=== PATIENT | male | born 1955 | race American Indian/Alaskan Native ===

== ENCOUNTER 2019-08-27 15:38 | Inpatient (IN) ==
[2019-08-27] MEDS ORDERED: 0.9 % SODIUM CHLORIDE 1,000 ML IV ONE ×2 (17:00→17:01)
[2019-08-27] MEDS ORDERED: INSULIN REGULAR, HUMAN 1 UNIT/0.01 ML UNIT IV ONE (17:00)
[2019-08-27 17:02] LABS: Appearance,Urine CLEAR; Bacteria,Urine 0 /hpf (0); Bilirubin,Urine NEG (NEG); Color,Urine STRAW; Glucose,Urine (UA) >=500 mg/dL (NEG); Ketones,Urine 5/TR mg/dL (NEG); Leukocyte Esterase,Urine NEG /uL (NEG); Nitrate,Urine NEG (NEG); Protein,Urine NEG (NEG); Specific Gravity,Urine 1.028 (1.000-1.035); Urine Blood NEG mg/dL (<0.03); Urine RBC 0 /hpf (0-1); Urine Squamous Epithelial Cell 0 /hpf (0-4); Urine WBC < 1 /hpf (0-4); Urobilinogen,Urine NEG (NEG)
--- NOTE | 2019-08-27 17:20 | XRay Report ---
CLINICAL INFORMATION: Infected right fifth toe TECHNIQUE: AP and lateral right foot COMPARISON: Previous examination dated 08/26/2019 FINDINGS: Patient apparently has an infection of his left fifth digit. There is a focal area of bone destruction involving the left fifth middle phalanx. Appearance is consistent with osteomyelitis. Gout could have a similar appearance. There is no soft tissue gas or radiopaque foreign body. There is been no significant interval change. There is no pathologic fracture There is mild degenerative joint disease. No other focal abnormalities. No other areas of bony erosion or destruction. Metatarsal phalangeal angle measures 25 degrees consistent with mild metatarsus primus varus and hallux valgus deformity. IMPRESSION: 1. No significant interval change since 08/26/2019 2. Soft tissue swelling in the right fifth digit. No soft tissue gas or radiopaque foreign body 3. Focal bone destruction in the lateral aspects of the right fifth middle phalanx. Findings are consistent with osteomyelitis Interpreted and Authenticated by: Ki Stallings 08/27/19
--- NOTE | 2019-08-27 17:24 | Emergency Department Note ---
General Adult HPI - General Chief complaint: Extremity Injury, Lower Stated complaint: look at little toe on rt foot. Time Seen by Provider: 08/27/19 16:46 Mode of arrival: ambulatory Limitations: no limitations - History of Present Illness HPI Narrative: 64-year-old male patient was referred to the emergency room from his primary care provider ([facility]) for developing cellulitis/wound to his right little toe. Patient is a very poorly controlled type II diabetic. He was seen in our emergency department yesterday and evaluated by both Dr. Parr. And Dr. Morel. During his time yesterday he had elevated blood sugar greater than 700. VBG showed pH 7.33 with bicarbonate 20 and elevated anion gap at 25. Patient was treated with 5 units of insulin 2 over his stay. He was successfully hydrated with 3 L of saline at total 40 units regular insulin d uring this time. He was successfully discharged in stable condition. During his initial intake today his fingerstick blood sugar was noted to read "high". When questioned patient tells me he took his insulin as directed but unfortunately "ate all the sugar in my house". He does admit to using me thamphetamine earlier this morning. He has no considerable complaints. He denies systemic fever, sweats, chills. He denies sinus congestion or cough. He denies shortness of breath. He denies retrosternal chest pain or palpitations. He denies abdominal pain, nausea, vomiting, or diarrhea. He admits to mild dysuria with urination today. He denies hematuria. No penile discharge. He admits to lower extremity neuropathy over the last year. He denies focal weakness. Review his active problems shows the following: Type 2 diabetes with hyperglycemia, diabetic ketoacidosis, atrial fibrillation, CHF, hypertension, chronic kidney disease stage III, nonischemic cardiomyopathy, hematuria, high cholesterol, BPH, chronic obstructive airway disease, CVA, history of kidney stones, heart disease, fatigue, tobacco use. - Related Data Home Medications Medication Instructions Recorded Confirmed albuterol sulfate 90 mcg/actuation 2 puff INHALATION QDAY PRN g 06/12/17 05/06/19 aerosol inhaler lisinopril 20 mg tablet 20 mg PO QDAY 06/12/17 05/06/19 warfarin 4 mg tablet 4 mg PO .COMPLEX 06/12/17 05/06/19 warfarin 5 mg tablet 5 mg PO .COMPLEX 06/12/17 05/06/19 furosemide 20 mg tablet 20 mg PO QDAY 06/16/17 05/06/19 aspirin 81 mg tablet,delayed 81 mg PO QDAY 11/03/18 05/06/19 release atorvastatin 80 mg tablet 80 mg PO QHS 11/03/18 05/06/19 chlorthalidone 25 mg tablet 12.5 mg PO QDAY tab 11/19/18 05/06/19 bisoprolol fumarate 10 mg tablet 5 mg PO QDAY tab 05/06/19 05/06/19 Previous Rx's Medication Instructions Recorded ergocalciferol (vitamin D2) 50,000 50,000 unit PO QWEEK #10 cap 12/17/18 unit capsule Allergies Allergy/AdvReac Type Severity Reaction Status Date / Time No Known Drug Allergies Allergy Verified 08/26/19 15:14 Review of Systems All systems ED: reviewed and negative except as stated. Past Medical History - Social History smoking status: Current every day smoker Physical Exam Limitations: no limitations General appearance: alert, in no apparent distress, other (smell of acetone on his breath.) Head: atraumatic, normocephalic Eye: Present: normal appearance, PERRL, EOMI. Absent: scleral icterus, conjunctival injection ENT: Present: normal oropharynx, mucous membranes moist Neck: Present: trachea midline. Absent: lymphadenopathy, thyromegaly Chest: Present: symmetric chest wall rise Respiratory: Present: normal lung sounds bilaterally. Absent: respiratory distress, wheezes, stridor, accessory muscle use, prolonged expiratory phase Cardiovascular: Present: regular rate, normal rhythm. Absent: systolic murmur, diastolic murmur Abdominal: Present: soft. Absent: distention, tenderness, guarding, rebound, rigidity, organomegaly, mass Extremities: Present: pedal edema, other (a right great toe erythematous and slightly swollen. There is small skin break to the lateral aspect. No obvious drainage. Area is nontender to palpation. Patient has considerably decreased sensation throughout both feet secondary to neuropathy.) Neurological: Present: alert, oriented X3 Psychiatric: Present: normal affect, normal mood Skin: Present: warm, dry, other (skin changes to right little toes mentioned.) Course Course Narrative: Patient brought into the emergency department and a history and physical examination performed. Saline lock was established and laboratory studies are drawn. Fingerstick blood sugar noted to read "high". Normal saline was started at 1000 mL bolus with the expectation of getting at least 2 L total infused. Review his laboratory studies show the following: CBC low WBC 4.0, all others are normal limits. CMP sodium 125 (corrected to 135), chloride 90, come back to 18, anion gap 17, BUN 24, creatinine 1.3, glucose 751, AST 41, ALT 47, alkaline phosphatase 177, all others are normal limits. VBG pH 7.42, pCO2 27.1, pO2 of 42, HCO3 17.1. Beta hydroxybutyrate 1.05. Urinalysis showed a straw-colored urine with specific gravity 1.028 and pH 6.0. Significant ++ glucose and trace ketones. Negative bacteria. Negative blood. X-ray of the right foot showed following soft tissue swelling of the right fifth digit. Radiologist mentioned no soft tissue gas or radiopaque foreign body. He did note focal bone destruction to the lateral aspects of the right fifth middle phalanx. He mentions these findings are consistent with osteomyelitis. Patient was given vancomycin 5000 mg and Zosyn 3.337 g IV. After reviewing all the labs, patient was given 10 units of regular insulin IVP. Repeat blood sugar was obtained approximately an hour later and it decreased considerably down to 250. Patient became hungry and was given some turkey from several sandwiches to eat. With h is developing osteomyelitis and uncontrolled type 2 diabetes and reached out the hospitalist (Dr. Haynes) about the need for admission. At this time Dr. Haynes recommended to be admitted for ongoing IV antibiotics for the cellulitis of his foot. During that time will also help manage his diabetes. The patient remained stable to his entire time in the emergency department and is being admitted under the care Dr. Haynes. All further treatment decisions will be carried out by Dr. Haynes. Vital Signs Temperature 96.8 F L 08/27/19 15:39 Pulse Rate 91 H 08/27/19 15:39 Respiratory Rate 16 08/27/19 15:39 Blood Pressure 128/76 08/27/19 15:39 Pulse Oximetry (%) 96 08/27/19 15:39 Temperature 96.8 F L 08/27/19 15:39 Pulse Rate 80 08/27/19 20:16 Respiratory Rate 16 08/27/19 15:39 Blood Pressure 104/73 08/27/19 20:16 Pulse Oximetry (%) 95 08/27/19 20:16 Medical Decision Making - Lab Data Lab results reviewed: Yes I reviewed the patient's lab results. Result diagrams: 08/27/19 17:00 08/27/19 17:15 Lab Results 08/27/19 08/27/19 08/27/19 Range/Units 16:20 17:00 17:15 WBC 4.0 L (4.5-11.0) K/mcL RBC 4.91 (4.50-5.90) M/mcL Hgb 14.4 (13.5-16.5) g/dL Hct 43.1 (41.0-55.0) % POC Hct 44.0 (41.0-55.0) % MCV 87.7 (80.0-100.0) fL MCH 29.3 (26.0-34.0) pg MCHC 33.4 (31.0-36.0) g/dL RDW 14.4 (11.5-14.5) % Plt Count 211 (140-440) K/mcL MPV 8.4 (7.4-10.4) fL Gran % 63.7 (38.0-78.0) % Lymph % (Auto) 17.7 (15.5-49.0) % Lyon % (Auto) 17.2 H (1.0-12.0) % Eos % (Auto) 1.1 (0.0-7.0) % Baso % (Auto) 0.3 (0.0-2.0) % Gran # 2.6 (1.8-8.0) K/mcL Lymph # (Auto) 0.7 L (1.5-4.8) K/mcL Lyon # (Auto) 0.7 (0.1-0.9) K/mcL Eos # (Auto) 0 (0.0-0.7) K/mcL Baso # (Auto) 0 (0.0-0.3) K/mcL ABG Methemoglobin (0.4-1.5) % VBG pH (7.32-7.42) U VBG pCO2 (41.0-51.0) mmHg VBG pO2 (25-40) mmHg VBG HCO3 (24.0-28.0) mmol/L VBG Total CO2 (25.0-29.0) mmol/L VBG O2 Saturation (40.0-70.0) % VBG Base Excess (-2.0-2.0) Carboxyhemoglobin (0.0-1.5) % THgb Total Hemoglobin (13.5-16.5) gm/dL O2 Delivery Level POC Sodium 126 L (133-145) mmol/L Sodium 125 L (133-145) mmol/L POC Potassium 3.8 (3.3-5.1) mmol/L Potassium 3.9 (3.3-5.1) mmol/L POC Chloride 95 L (96-108) mmol/L Chloride 90 L (96-108) mmol/L Carbon Dioxide 18 L (22-30) mmol/L POC Total CO2 21 L (22-30) mmol/L Anion Gap 17.0 H (8-16) POC BUN 29 H (8-23) mg/dl BUN 24 H (8-23) mg/dl Creatinine 1.3 H (0.7-1.2) mg/dl POC Creatinine 1.1 (0.7-1.2) mg/dl GFR Calculation 57 Glucose 751 H* (70-105) mg/dL POC Glucose > 700 H* (70-105) mg/dL Calcium 9.1 (8.6-10.4) mg/dl POC WB Ioniz Calcium 1.16 (1.16-1.32) mmol/L Total Bilirubin 0.3 (0.0-1.0) mg/dL AST 41 H (0-37) U/l ALT 47 H (0-40) U/l Alkaline Phosphatase 177 H (39-117) U/L Total Protein 6.2 (5.9-8.4) gm/dL Albumin 3.3 (3.2-5.2) gm/dL Globulin 2.9 (2.2-3.7) gm/dL Albumin/Globulin Ratio 1.1 (1.0-2.3) Beta-Hydroxybutyrate 1.05 H (< 0.27) mmol/L Urine Color Straw Urine Appearance Clear Urine pH 6.0 (5.0-9.0) Ur Specific Haines 1.028 (1.000-1.035) Urine Protein Neg (NEG) mg/dL Urine Glucose (UA) >=500 A (NEG) mg/dL Urine Ketones 5/tr A (NEG) mg/dL Urine Occult Blood Neg (<0.03) mg/dL Urine Nitrate Neg (NEG) Urine Bilirubin Neg (NEG) mg/dL Urine Urobilinogen Neg (NEG) mg/dL Ur Leukocyte Esterase Neg (NEG) /uL Urine RBC 0 (0-1) /hpf Urine WBC < 1 (0-4) /hpf Ur Squamous Epith Cells 0 (0-4) /hpf Urine Bacteria 0 (0) /hpf 08/27/19 Range/Units 17:44 WBC (4.5-11.0) K/mcL RBC (4.50-5.90) M/mcL Hgb (13.5-16.5) g/dL Hct (41.0-55.0) % POC Hct (41.0-55.0) % MCV (80.0-100.0) fL MCH (26.0-34.0) pg MCHC (31.0-36.0) g/dL RDW (11.5-14.5) % Plt Count (140-440) K/mcL MPV (7.4-10.4) fL Gran % (38.0-78.0) % Lymph % (Auto) (15.5-49.0) % Lyon % (Auto) (1.0-12.0) % Eos % (Auto) (0.0-7.0) % Baso % (Auto) (0.0-2.0) % Gran # (1.8-8.0) K/mcL Lymph # (Auto) (1.5-4.8) K/mcL Lyon # (Auto) (0.1-0.9) K/mcL Eos # (Auto) (0.0-0.7) K/mcL Baso # (Auto) (0.0-0.3) K/mcL ABG Methemoglobin 0.3 L (0.4-1.5) % VBG pH 7.42 (7.32-7.42) U VBG pCO2 27.1 L (41.0-51.0) mmHg VBG pO2 142 H (25-40) mmHg VBG HCO3 17.1 L (24.0-28.0) mmol/L VBG Total CO2 17.9 L (25.0-29.0) mmol/L VBG O2 Saturation 93.8 H (40.0-70.0) % VBG Base Excess -6.0 L (-2.0-2.0) Carboxyhemoglobin 4.8 H (0.0-1.5) % THgb Total Hemoglobin 12.2 L (13.5-16.5) gm/dL O2 Delivery Level Not Reportable POC Sodium (133-145) mmol/L Sodium (133-145) mmol/L POC Potassium (3.3-5.1) mmol/L Potassium (3.3-5.1) mmol/L POC Chloride (96-108) mmol/L Chloride (96-108) mmol/L Carbon Dioxide (22-30) mmol/L POC Total CO2 (22-30) mmol/L Anion Gap (8-16) POC BUN (8-23) mg/dl BUN (8-23) mg/dl Creatinine (0.7-1.2) mg/dl POC Creatinine (0.7-1.2) mg/dl GFR Calculation Glucose (70-105) mg/dL POC Glucose (70-105) mg/dL Calcium (8.6-10.4) mg/dl POC WB Ioniz Calcium (1.16-1.32) mmol/L Total Bilirubin (0.0-1.0) mg/dL AST (0-37) U/l ALT (0-40) U/l Alkaline Phosphatase (39-117) U/L Total Protein (5.9-8.4) gm/dL Albumin (3.2-5.2) gm/dL Globulin (2.2-3.7) gm/dL Albumin/Globulin Ratio (1.0-2.3) Beta-Hydroxybutyrate (< 0.27) mmol/L Urine Color Urine Appearance Urine pH (5.0-9.0) Ur Specific Haines (1.000-1.035) Urine Protein (NEG) mg/dL Urine Glucose (UA) (NEG) mg/dL Urine Ketones (NEG) mg/dL Urine Occult Blood (<0.03) mg/dL Urine Nitrate (NEG) Urine Bilirubin (NEG) mg/dL Urine Urobilinogen (NEG) mg/dL Ur Leukocyte Esterase (NEG) /uL Urine RBC (0-1) /hpf Urine WBC (0-4) /hpf Ur Squamous Epith Cells (0-4) /hpf Urine Bacteria (0) /hpf - Radiology Data Radiology results reviewed: Yes I reviewed the patient's radiology results. Ordering Physician: Gilmar Dc PA-C Date of Service: 08/27/19 Procedure(s): XR foot ltd RT 2V Accession Number(s): [id number] CLINICAL INFORMATION: Infected right fifth toe TECHNIQUE: AP and lateral right foot COMPARISON: Previous examination dated 08/26/2019 FINDINGS: Patient apparently has an infection of his left fifth digit. There is a focal area of bone destruction involving the left fifth middle phalanx. Appearance is consistent with osteomyelitis. Gout could have a similar appearance. There is no soft tissue gas or radiopaque foreign body. There is been no significant interval change. There is no pathologic fracture There is mild degenerative joint disease. No other focal abnormalities. No other areas of bony erosion or destruction. Metatarsal phalangeal angle measures 25 degrees consistent with mild metatarsus primus varus and hallux valgus deformity. IMPRESSION: 1. No significant interval change since 08/26/2019 2. Soft tissue swelling in the right fifth digit. No soft tissue gas or radiopaque foreign body 3. Focal bone destruction in the lateral aspects of the right fifth middle phalanx. Findings are consistent with osteomyelitis Interpreted and Authenticated by: Ki Stallings 08/27/19 Disposition Pt seen by MANAGER CHINESE/PA only: Yes Clinical Impression: Ketosis due to diabetes Hyperglycemia due to type 2 diabetes mellitus Qualifiers: Diabetes mellitus moth exterminator insulin use: with moth exterminator use Qualified Code(s): E11.65 - Type 2 diabetes mellitus with hyperglycemia; Z79.4 - intermodal truck driver (current) use of insulin Osteomyelitis Qualifiers: Osteomyelitis type: other Osteomyelitis location: foot Laterality: right Qualified Code(s): M86.8X7 - Other osteomyelitis, ankle and foot Disposition: Home, Self-Care Condition: Good Instructions: Osteomyelitis (ED) Additional Instructions: Patient is being admitted to the hospital to the care of the hospitalist (Dr. Haynes). All further treatment decisions and modalities be carried out by the hospitalist. Referrals: Chilango Mcmillan MD [Primary Care Provider] - Time of Disposition: 20:46
[2019-08-27 17:27] LABS: POC Blood Urea Nitrogen 29 mg/dl (8-23); POC CO2 21 mmol/L (22-30); POC Calcium, Ionized 1.16 mmol/L (1.16-1.32); POC Chloride 95 mmol/L (96-108); POC Creatinine 1.1 mg/dl (0.7-1.2); POC Glucose, Random > 700 mg/dL (70-105); POC Potassium 3.8 mmol/L (3.3-5.1); POC Sodium 126 mmol/L (133-145)
[2019-08-27 18:04] LABS: ABG Methemoglobin 0.3 % (0.4-1.5); Total Hemoglobin 12.2 gm/dL (13.5-16.5); VBG HCO3 17.1 mmol/L (24.0-28.0); VBG Oxygen Saturation 93.8 % (40.0-70.0); VBG PCO2 27.1 mmHg (41.0-51.0); VBG PH 7.42 U (7.32-7.42); VBG PO2 142 mmHg (25-40); VBG Total CO2 17.9 mmol/L (25.0-29.0)
[2019-08-27 18:14] LABS: Basophils # (Auto) 0 K/mcL (0.0-0.3); Basophils % (Auto) 0.3 % (0.0-2.0); Eosinophils # (Auto) 0 K/mcL (0.0-0.7); Eosinophils % (Auto) 1.1 % (0.0-7.0); Granulocytes % (Auto) 63.7 % (38.0-78.0); Hematocrit 43.1 % (41.0-55.0); Hemoglobin 14.4 g/dL (13.5-16.5); Lymphocytes # (Auto) 0.7 K/mcL (1.5-4.8); Lymphocytes % (Auto) 17.7 % (15.5-49.0); Mean Cell Volume 87.7 fL (80.0-100.0); Mean Corpuscular HGB Conc 33.4 g/dL (31.0-36.0); Mean Platelet Volume 8.4 fL (7.4-10.4); Monocytes # (Auto) 0.7 K/mcL (0.1-0.9); Monocytes % (Auto) 17.2 % (1.0-12.0); Platelet Count 211 K/mcL (140-440); RBC 4.91 M/mcL (4.50-5.90); Red Cell Distribution Width 14.4 % (11.5-14.5)
[2019-08-27 18:49] LABS: ALT/SGPT 47 U/l (0-40); AST/SGOT 41 U/l (0-37); Albumin 3.3 gm/dL (3.2-5.2); Albumin/Globulin Ratio 1.1 (1.0-2.3); Alkaline Phosphatase 177 U/L (39-117); Beta Hydroxybutyrate 1.05 mmol/L (< 0.27); Bilirubin,Total 0.3 mg/dL (0.0-1.0); Blood Urea Nitrogen 24 mg/dl (8-23); Calcium 9.1 mg/dl (8.6-10.4); Carbon Dioxide 18 mmol/L (22-30); Chloride 90 mmol/L (96-108); Globulin 2.9 gm/dL (2.2-3.7); Glomerular Filtration Rate 57; Glucose 751 mg/dL (70-105)
[2019-08-27] MEDS ORDERED: PIPERACILLIN SODIUM/TAZOBACTAM 3.375 GM in DEXTROSE 5% IN WATER 50 ML IV ONE (18:54)
[2019-08-27] MEDS ORDERED: VANCOMYCIN 1,500 MG in 0.9 % SODIUM CHLORIDE 500 ML IV ONE (18:54)
[2019-08-27] MEDS ORDERED: cefTRIAXone 1 GM in DEXTROSE 5% IN WATER 50 ML IV SCH (22:11)
[2019-08-27] MEDS ORDERED: ACETAMINOPHEN 325 MG TABLET PO PRN (22:11)
[2019-08-27] MEDS ORDERED: DEXTROSE 50% 50 ML VIAL IV PRN (22:11)
[2019-08-27] MEDS ORDERED: ONDANSETRON 4 MG ODT TABLET SL PRN (22:11)
[2019-08-27] MEDS ORDERED: DEXTROSE 31 GM ORAL.SUSP PO PRN (22:11)
[2019-08-27] MEDS ORDERED: ONDANSETRON 4 MG/2 ML VIAL IV PRN (22:11)
[2019-08-27] MEDS ORDERED: cefTRIAXone 1 GM VIAL ONE (22:38)
[2019-08-27] MEDS: 0.9 % SODIUM CHLORIDE 1,000 ML IV SCH (22:49)
[2019-08-27] MEDS: 0.9 % SODIUM CHLORIDE 10 ML SYRINGE IV SCH (22:49)
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
[2019-08-28] MEDS: 0.9 % SODIUM CHLORIDE 10 ML SYRINGE IV SCH ×3 (05:38→20:23)
[2019-08-28 06:27] LABS: Basophils # (Auto) 0 K/mcL (0.0-0.3); Basophils % (Auto) 0.5 % (0.0-2.0); Eosinophils # (Auto) 0.2 K/mcL (0.0-0.7); Granulocytes % (Auto) 59.7 % (38.0-78.0); Hematocrit 41.1 % (41.0-55.0); Hemoglobin 13.4 g/dL (13.5-16.5); Lymphocytes # (Auto) 1.2 K/mcL (1.5-4.8); Lymphocytes % (Auto) 21.9 % (15.5-49.0); Mean Cell Volume 88.4 fL (80.0-100.0); Mean Corpuscular HGB Conc 32.8 g/dL (31.0-36.0); Mean Platelet Volume 8.1 fL (7.4-10.4); Monocytes # (Auto) 0.8 K/mcL (0.1-0.9); Monocytes % (Auto) 14.9 % (1.0-12.0); Platelet Count 210 K/mcL (140-440); RBC 4.64 M/mcL (4.50-5.90); Red Cell Distribution Width 14.9 % (11.5-14.5); WBC 5.3 K/mcL (4.5-11.0)
[2019-08-28 07:13] LABS: Estimated Average Glucose(eAG) 542 mg/dL; Hemoglobin A1C 20.5 % HGB (4.0-6.0)
[2019-08-28] MEDS: INSULIN LISPRO 1 UNIT/0.01 ML UNIT SQ SCH ×4 (07:17→20:22)
[2019-08-28 07:19] LABS: ALT/SGPT 37 U/l (0-40); AST/SGOT 34 U/l (0-37); Albumin 2.9 gm/dL (3.2-5.2); Albumin/Globulin Ratio 1.2 (1.0-2.3); Alkaline Phosphatase 113 U/L (39-117); Bilirubin,Total 0.3 mg/dL (0.0-1.0); Blood Urea Nitrogen 16 mg/dl (8-23); C-Reactive Protein 3.3 mg/dl (0.0-0.8); Calcium 8.4 mg/dl (8.6-10.4); Carbon Dioxide 22 mmol/L (22-30); Chloride 100 mmol/L (96-108); Globulin 2.5 gm/dL (2.2-3.7); Glomerular Filtration Rate 89; Glucose 293 mg/dL (70-105)
[2019-08-28 07:32] LABS: Erythrocyte Sedimentation Rate 12 mm/hr (0-15)
[2019-08-28] MEDS: CHLORTHALIDONE 25 MG TABLET PO SCH (10:07)
[2019-08-28] MEDS: INSULIN GLARGINE, HUMAN 1 UNIT/0.01 ML SQ SCH ×2 (10:09→20:22)
--- NOTE | 2019-08-28 10:10 | Magnetic Resonance Report ---
CLINICAL INFORMATION: Diabetes. Soft tissue wound in the right fifth digit TECHNIQUE: Sagittal, coronal, axial images of the right forefoot COMPARISON: Plain film examinations dated 08/26/2019 and 08/27/2019 FINDINGS: Plain film study demonstrates a focal destructive lesion involving the right fifth middle phalanx. There is soft tissue edema within the right fifth digit. There appears to be a wound at the tip of the digit. Clinical correlation necessary. There is bone marrow edema within the right fifth middle phalanx. There is consistent with osteomyelitis. The proximal and distal phalanges appear negative. No well-defined focal fluid collection. No other osseous abnormality. Metatarsals are negative. There is no bone marrow edema. No fracture or stress reaction. No evidence for osteomyelitis. The first through fourth digits are negative IMPRESSION: 1. Soft tissue swelling and edema in the right fifth digit 2. Bone marrow edema in the right fifth middle phalanx consistent with osteomyelitis Interpreted and Authenticated by: Ki Stallings 08/28/19
[2019-08-28] MEDS: 0.9 % SODIUM CHLORIDE 1,000 ML IV SCH ×2 (11:47→20:21)
[2019-08-28] MEDS ORDERED: WARFARIN 5 MG TABLET PO ONE (14:00)
--- NOTE | 2019-08-28 14:45 | Internal Med Progress Note ---
Medical - PN: Subj Patient information: Note initiated : 08/28/19 at 2:43 pm Service Date, if different from initiated Date: [] Patient: Reynaldo Campos a 64 y/o M admitted on 08/27/19 for Look At Little Toe On RtT Foot.. Chief Complaint: Follow-up cellulitis and osteomyelitis Interval history: 08/27 Mr. Campos is a 64 year old M with a history of atrial fibrillation, type 2 diabetes, hypertension, CKD stage III who was referred back to the ED from [facility] due to abnormal foot x-rays. Patient was seen in the ED on 08/26 (yesterday) for hyperglycemia again being referred from clinic. He had a glucose in the 700 range, and anion gap. He is treated with insulin and fluids in the ED with correction of his hyperglycemia and discharged home early this morning. Prior to being referred to the ED on 08/26, he had also complained of redness and draining of his right fifth toe. Radiographs have been taken at that time. He was called by the clinic today, sent to the ED for further evaluations after evidence of osteomyelitis on his radiographs. Patient states that his right little toe became swollen in the middle the summer, and intermittently had purulent drainage. He would occasionally cover it, or elevate it. He would have repeated episodes of edema/erythema and drainage. He had not seen a physician about that until he was seen in the clinic yesterday. As noted x-rays were taken which did show evidence of osteomyelitis. After the clinic called him and asked him to come to the emergency department at [facility], patient drank a power drink, several 7 ups and ribs with sweet barbecue sauce. He had a subsequent power drink ([id number]) and reported to ED. At that point his glucoses were again greater than 700. He was treated with fluids as well as IV insulin with improvement in his glucose. He was referred for admission for further evaluation of cellulitis and osteomyelitis of his right fifth toe. 08/28 No complaints this afternoon. Has been seen by orthopedics. MRI confirms ost eomyelitis limited to the middle phalanx. Patient not interested in amputation would like to try to treat with antibiotics. Gram stain of purulence expressed to ED with gram-positive cocci in chains and clusters. Glucose is under better control with some control of dietary intake. - Constitutional Vitals: Vital Signs Temp Pulse Resp BP Pulse Ox 98.4 F 88 18 111/65 95 08/28/19 12:13 08/28/19 12:13 08/28/19 12:13 08/28/19 12:13 08/28/19 12:13 Period Temp Pulse Resp BP Sys/Bates Pulse Ox Last 24 Hr 96.8 F-98.4 F 73-103 16-20 95-128/54-82 93-96 Intake and Output 08/28/19 08/28/19 08/28/19 05:59 13:59 21:59 Intake Total 240 1000 Output Total 1100 525 600 Balance -860 475 -600 Weight 195 lb 8 oz 195 lb 8 oz Patient Weight 08/29/19 04:59 Weight 195 lb 8 oz Intake & Output: Intake & Output 08/28/19 08/28/19 08/28/19 05:59 13:59 21:59 Intake Total 240 1000 Output Total 1100 525 600 Balance -860 475 -600 Weight 195 lb 8 oz 195 lb 8 oz Intake: IV 1000 Sodium Chloride 0.9% 1,000 ml @ 1000 100 mls/hr IV .Q10H [facility] Rx#: [id number] Oral 240 Output: Void Amount 1100 525 600 Other: Meal Lunch Feeding Ability Independent Urine Appearance Clear Clear Clear Urine Color Pale Bright Yellow Pale Urine Odor Normal Normal Exam: General: In bed no acute distress Chest: Clear Cardiovascular: Regular, no edema Abdomen: Soft, nontender Musculoskeletal: Right fifth digit with no tenderness, decreased edema, erythema generally resolved. No longer draining from the lateral wound. Callus on top of toe. Neuro: Alert, oriented, ambulatory. Decreased sensation in the bilateral lower extremities. Medical - PN: Obj Da - Labs CBC & Chem 7: 08/28/19 04:41 08/28/19 04:41 Labs: Abnormal Lab Results 08/28/19 08/28/19 08/27/19 04:41 04:41 17:44 WBC Hgb 13.4 L RDW 14.9 H [place] % (Auto) 14.9 H Lymph # (Auto) 1.2 L ABG Methemoglobin 0.3 L VBG pCO2 27.1 L VBG pO2 142 H VBG HCO3 17.1 L VBG Total CO2 17.9 L VBG O2 Saturation 93.8 H VBG Base Excess -6.0 L Carboxyhemoglobin 4.8 H Total Hemoglobin 12.2 L POC Sodium Sodium POC Chloride Chloride Carbon Dioxide POC Total CO2 Anion Gap POC BUN BUN Creatinine Glucose 293 H POC Glucose Hemoglobin A1c 20.5 H Calcium 8.4 L AST ALT Alkaline Phosphatase C-Reactive Protein 3.3 H Total Protein 5.4 L Albumin 2.9 L Beta-Hydroxybutyrate Urine Glucose (UA) Urine Ketones 08/27/19 08/27/19 08/27/19 17:15 17:00 16:20 WBC 4.0 L Hgb RDW [place] % (Auto) 17.2 H Lymph # (Auto) 0.7 L ABG Methemoglobin VBG pCO2 VBG pO2 VBG HCO3 VBG Total CO2 VBG O2 Saturation VBG Base Excess Carboxyhemoglobin Total Hemoglobin POC Sodium 126 L Sodium 125 L POC Chloride 95 L Chloride 90 L Carbon Dioxide 18 L POC Total CO2 21 L Anion Gap 17.0 H POC BUN 29 H BUN 24 H Creatinine 1.3 H Glucose 751 H* POC Glucose > 700 H* Hemoglobin A1c Calcium AST 41 H ALT 47 H Alkaline Phosphatase 177 H C-Reactive Protein Total Protein Albumin Beta-Hydroxybutyrate 1.05 H Urine Glucose (UA) >=500 A Urine Ketones 5/tr A Microbiology 08/27/19 21:14 Gram Stain - Final Toe - Fifth Wound Culture - Preliminary Meds: Medications Acetaminophen (Tylenol) 650 mg PO Q6HP PRN; Protocol PRN Reason: Per Pain Protocol/Fever > 101 Atorvastatin Calcium (Lipitor) 80 mg PO HS [facility] Ceftriaxone Sodium (Rocephin) 1 gm IV DAILY [facility] Chlorthalidone (Hygroton) 12.5 mg PO DAILY [facility] Last Admin: 08/28/19 10:07 Dose: 12.5 mg Documented by: Dextrose (Dextrose 50%) 0 ml IV UD PRN PRN Reason: Hypoglycemia Diagnostic Test (Pha) (Accu-Chek) 1 each FS ACHS [facility] Last Admin: 08/28/19 12:06 Dose: 1 each Documented by: Glucose (Insta-Glucose) 15 gm PO PRN PRN PRN Reason: Hypoglycemia Sodium Chloride (Sodium Chloride 0.9%) 1,000 mls @ 100 mls/hr IV .Q10H [facility] Last Admin: 08/28/19 11:47 Dose: 100 mls/hr Documented by: Insulin Glargine (Lantus) 20 unit SQ BID [facility] Last Admin: 08/28/19 10:09 Dose: 20 units Documented by: Insulin Human Lispro (Humalog) 0 unit SQ ACHS [facility]; Protocol Last Admin: 08/28/19 12:09 Dose: 10 units Documented by: Ondansetron HCl (Zofran) 4 mg IV Q6HP PRN PRN Reason: Nausea And Vomiting Ondansetron HCl (Zofran Odt) 4 mg SL Q6HP PRN PRN Reason: Nausea And Vomiting Sodium Chloride (Saline Flush) 10 ml IV Q8 [facility] Last Admin: 08/28/19 05:38 Dose: Not Given Documented by: Warfarin Sodium (Coumadin Per Pharmacy) 1 order PO UD CHRISTIANO - Impressions Date of Service: 08/28/19 Procedure(s): MR foot RT wo con IMPRESSION: 1. Soft tissue swelling and edema in the right fifth digit 2. Bone marrow edema in the right fifth middle phalanx consistent with osteomyelitis - ABG Interpretation ABG results: 08/27/19 17:44 ABG Methemoglobin 0.3 L VBG pH 7.42 VBG pCO2 27.1 L VBG pO2 142 H VBG HCO3 17.1 L VBG Total CO2 17.9 L VBG O2 Saturation 93.8 H VBG Base Excess -6.0 L Medical - PN: A/P - Narrative A/P Narrative: 64-year-old male with type 2 diabetes, hypertension, chronic kidney disease presents after being called by clinic with findings of osteomyelitis on his right fifth toe. Cellulitis and osteomyelitis/diabetic foot wound. Right fifth digit. Cellulitis is improving, lateral area of drainage has stopped. This is a chronic condition, however acute management complicated by very poorly controlled diabetes. Onset was last summer, he finally brought it to his providers attention on 08/26 when establishing care. Radiographs at that point showed osteomyelitis and he was directed towards the ED. He did have evidence of soft tissue infection associated, but also a serum glucose greater than 700 necessitating hospitalization for control of glucose and treatment of infection. He has been seen by orthopedics, is not interested in amputation. No evidence of sequestrum or abscess on MRI. Plan: Continue vancomycin and ceftriaxone Follow-up wound culture. Gram stain with GPC's in chains and clusters Discussed with Dr. Treadwell today We will attempt to treat with antibiotics, await cultures to guide outpatient choice Possible discharge tomorrow on orals Type 2 diabetes. Poorly controlled. Patient had initiation of insulin therapy again on 08/26. He spent several hours in the ED that night getting control of his glucoses. Subsequently binged on sugary substances prior to coming back to the hospital on day of admission. Initial glucose control achieved in the ED with IV insulin. He had a mild anion gap with mildly decreased bicarb of 18 at the time of presentation. This morning, electrolytes are normalized, no longer has an anion gap. Better control of glucose today. Hemoglobin A1c 20.4%. Plan Continue Lantus at a reduced dose of 20 units twice daily, adjust as needed Sliding scale insulin Diabetic diet, Accu-Cheks Follow electrolytes Hyponatremia. Suspect pseudohyponatremia secondary to hyperglycemia. Resolved. Plan: Nothing further. Atrial fibrillation. Chronic diagnosis. However does sound regular this afternoon. Plan: Continue warfarin for stroke prophylaxis, dose per pharmacy, follow INR. Chronic kidney disease. Creatinine is 1.3 which appears at baseline. Plan: Monitor Hypertension. On chlorthalidone and an unknown dose of lisinopril the outside. Plan: Continue chlorthalidone, confirm lisinopril dose. Prophylaxis: Patient is systemically anticoagulated with warfarin.
[2019-08-28] MEDS: cefTRIAXone 1 GM VIAL IV SCH (15:02)
--- NOTE | 2019-08-28 15:26 | Consultation ---
DATE OF CONSULTATION: 08/28/2019 ORTHOPEDIC CONSULTATION NOTE DATE OF CONSULTATION: 08/28/2019 REASON FOR CONSULTATION: Right small toe osteomyelitis. CONSULTING PROVIDER: Dr. Farmer, hospitalist at [facility]. CHIEF COMPLAINT: Right small toe osteomyelitis. HISTORY OF PRESENT ILLNESS: The patient is a 64-year-old male, poorly controlled diabetic, smoker as well as drug user, who presented 2 days ago at [facility] ER, found to have glucose of 700. At that time, he was treated, stabilized and discharged, and also had imaging of his right foot for what he describes as a wound that has been draining on and off since April. At that point, he was sent home with the read being for osteomyelitis. He was called to return yesterday to the ER and again his blood sugars were greater than 700 upon admission and he was admitted by the hospitalist overnight given the osteomyelitis and failure for this to be treated as an outpatient fashion as well as his diabetes. Upon discussion with the patient, he has no pain in the small toe. He thinks that the ulceration occurs from his shoes, but he has no pain in that toe at this time. No other complaints. PAST MEDICAL HISTORY: Significant for type 2 diabetes, AFib, congestive heart failure, hypertension, chronic kidney disease, nonischemic cardiomyopathy, high cholesterol, BPH, COPD, history of CVA, and history of kidney stones. PAST SURGICAL HISTORY: Cardiac catheterization in 2015, ORIF of leg fracture in 1974. He had a TURP in 2017. ALLERGIES: No known drug allergies. MEDICATIONS: Lisinopril, warfarin, atorvastatin, chlorthalidone, vitamin D, and alfuzosin. FAMILY HISTORY: Significant for diabetes, heart disease. SOCIAL HISTORY: He is . Resides with his . He does use marijuana as well as methamphetamines. He does smoke daily. REVIEW OF SYSTEMS: As noted above. He denies any fevers, chills, chest pain or shortness of breath at this point. Otherwise, the 10-point review of systems is negative. PHYSICAL EXAMINATION: VITAL SIGNS: He is afebrile. Temperature 98.1. Heart rate varies from 80 to 103. Blood pressure 111/70. Satting 96% on room air. GENERAL: He is resting comfortably in the hospital bed. NEUROLOGIC: He is alert, oriented, and does interact. He does not enunciate his words very well and difficult to understand at times. EXTREMITIES: Focal examination of the right lower extremity reveals an isolated issue to his right small toe. He has a small ulceration on the lateral mid aspect of the toe. There is no drainage and has eschar over the top of it. He also has a small pinpoint hole over the medial aspect and he has this thick scaled skin over top of the foot, which appears to be from a blister that has subsequently resolved. There is no significant erythema or streaking. There is none up in the foot or past the metatarsophalangeal joint itself. It is not painful with motion. The leg itself has hair that stops at the proximal third of the leg. Otherwise, there is no hair present. He has palpable dorsalis pedis and posterior tibial pulse. He endorses intact sensation to light touch; however, decreased on the plantar surface of his foot. IMAGING: He has plain x-rays of his foot, which demonstrates osteolysis of the P2 segment of his small toe consistent with osteomyelitis. Otherwise, no fractures. He has an MRI of his right foot with some movement in images, but does appear to have a component of osteo in the most distal aspect of the proximal phalanx along the medial border but primarily involves the middle phalanx. LABORATORY DATA: He has a white count of 4, H and H of 14.4 and 43.1, and platelets 211. His INR is 1. His creatinine is 0.9. His glucose this morning was 293, which is down from 751. His hemoglobin A1c is 20.5. ASSESSMENT: This is a 64-year-old male with multiple medical comorbidities to include tobacco use, poorly controlled diabetes, and drug use with osteomyelitis of his right small toe involving very small portion of the proximal phalanx in my opinion but primarily the middle phalanx. I discussed this with him today. I discussed treatment options to include amputation versus IV antibiotics. Discussed both options including IV antibiotics, which will be at least 6 weeks and may not resolve the osteomyelitis and may still need amputation. Otherwise, could proceed with amputation being a definitive approach and may resolve the issue more quickly. He does have a risk of wound complications given his poorly controlled diabetes. He is not septic and only involves the a component of cellulitis of this toe. It is less urgent matter. At this time, he does not want to proceed with an amputation. He would rather try the IV antibiotics. If it does not improve his symptoms then could proceed with amputation at that time. I relayed this to Dr. Farmer, the hospitalist as well. If there are any other findings on the MRI such as a sequestrum that would would benefit from a formal I&D, do not have a plan to operate at this time. He can follow up with podietry on an outpatient basis as well. If there are any changes while inpatient, please reconsult. Thank you JESUS:in Job ID: [id number] Doc ID: [id number] Belgica Treadwell MD MTDD
[2019-08-28] MEDS ORDERED: ATORVASTATIN 40 MG TABLET PO SCH (21:00)
[2019-08-29] MEDS: 0.9 % SODIUM CHLORIDE 10 ML SYRINGE IV SCH (04:23)
[2019-08-29 06:09] LABS: INR 0.9 (0.9-1.1); Prothrombin Time 12.6 sec (11.9-14.5)
[2019-08-29 06:14] LABS: Basophils # (Auto) 0 K/mcL (0.0-0.3); Basophils % (Auto) 0.5 % (0.0-2.0); Eosinophils # (Auto) 0.1 K/mcL (0.0-0.7); Eosinophils % (Auto) 3.1 % (0.0-7.0); Granulocytes % (Auto) 51.1 % (38.0-78.0); Hematocrit 45.2 % (41.0-55.0); Hemoglobin 14.7 g/dL (13.5-16.5); Lymphocytes # (Auto) 1.4 K/mcL (1.5-4.8); Lymphocytes % (Auto) 30.4 % (15.5-49.0); Mean Cell Volume 88.1 fL (80.0-100.0); Mean Corpuscular HGB Conc 32.6 g/dL (31.0-36.0); Monocytes # (Auto) 0.7 K/mcL (0.1-0.9); Monocytes % (Auto) 14.9 % (1.0-12.0); Platelet Count 233 K/mcL (140-440); RBC 5.13 M/mcL (4.50-5.90); Red Cell Distribution Width 14.3 % (11.5-14.5); WBC 4.5 K/mcL (4.5-11.0)
[2019-08-29 06:19] LABS: Blood Urea Nitrogen 13 mg/dl (8-23); Calcium 8.8 mg/dl (8.6-10.4); Carbon Dioxide 22 mmol/L (22-30); Chloride 101 mmol/L (96-108); Glomerular Filtration Rate 89; Glucose 285 mg/dL (70-105)
[2019-08-29] MEDS: INSULIN LISPRO 1 UNIT/0.01 ML UNIT SQ SCH (06:40)
[2019-08-29] MEDS: 0.9 % SODIUM CHLORIDE 1,000 ML IV SCH (06:46)
--- NOTE | 2019-08-29 08:15 | Discharge Summary ---
Medical - DS: Prov Patient information: Note initiated : 08/29/19 at 8:13 am Service Date, if different from initiated Date: [] Patient: Reynaldo Campos 64 y/o M admitted on 08/27/19 for Look At Little Toe On RtT Foot.. Chief Complaint: Called in for abnormal foot x-ray Date of admission: 08/27/19 21:56 Discharge date: 08/29/19 Primary care physician: Chilango Mcmillan Attending physician on admission: Melina Farmer Consults: 08/27/19 Consult to Physician [CONS] Stat Comment: Consulting Provider: Melina Farmer Reason For Exam: Physician to Consult Attending physician on discharge: Melina Farmer Medical - DS: Meds - Discharge Medications Prescriptions: Doxycycline [Vibramycin] 100 mg IV Q12H #28 vial Transmission Status: Pending to [facility] Active and Home Medications: Home Medications lisinopril 20 mg tablet 20 mg PO QDAY 06/12/17 [History Confirmed 05/06/19 Last Taken Unknown] warfarin 5 mg tablet 5 mg PO .COMPLEX 06/12/17 [History Confirmed 08/27/19 Last Taken 06/15/17] atorvastatin 80 mg tablet 80 mg PO QHS 11/03/18 [History Confirmed 08/27/19 Last Taken Unknown] chlorthalidone 25 mg tablet 12.5 mg PO QDAY tab 11/19/18 [History Confirmed 08/27/19 Last Taken Unknown] ergocalciferol (vitamin D2) 50,000 unit capsule 50,000 unit PO QWEEK #10 cap 12/17/18 [Rx Confirmed 08/27/19 Last Taken Unknown] Alfuzosin HCl [Alfuzosin HCl ER] 10 mg PO ONCE 08/27/19 [History Confirmed 08/27/19 Last Taken Unknown] Medical - DS: Hosp Hospital Course: 08/27 Mr. Campos is a 64 year old M with a history of atrial fibrillation, type 2 diabetes, hypertension, CKD stage III who was referred back to the ED from [facility] due to abnormal foot x-rays. Patient was seen in the ED on 08/26 (yesterday) for hyperglycemia again being referred from clinic. He had a glucose in the 700 range, and anion gap. He is treated with insulin and fluids in the ED with correction of his hyperglycemia and discharged home early this morning. Prior to being referred to the ED on 08/26, he had also complained of redness and draining of his right fifth toe. Radiographs have been taken at that time. He was called by the clinic today, sent to the ED for further evaluations after evidence of osteomyelitis on his radiographs. Patient states that his right little toe became swollen in the middle the summer, and intermittently had purulent drainage. He would occasionally cover it, or elevate it. He would have repeated episodes of edema/erythema and drainage. He had not seen a physician about that until he was seen in the clinic yesterday. As noted x-rays were taken which did show evidence of osteomyelitis. After the clinic called him and asked him to come to the emergency department at [facility], patient drank a power drink, several 7 ups and ribs with sweet barbecue sauce. He had a subsequent power drink ([id number]) and reported to ED. At that point his glucoses were again greater than 700. He was treated with fluids as well as IV insulin with improvement in his glucose. He was referred for admission for further evaluation of cellulitis and osteomyelitis of his right fifth toe. 08/28 No complaints this afternoon. Has been seen by orthopedics. MRI confirms osteomyelitis limited to the middle phalanx. Patient not interested in amputation would like to try to treat with antibiotics. Gram stain of purulence expressed to ED with gram-positive cocci in chains and clusters. Glucose is under better control with some control of dietary intake. 08/29 remains stable. Glucoses are controlled in the 200 range on his current insulin regimen with a control of sugar/simple carbohydrate intake. No drainage from toe. No pain in the toe. Otherwise feels well. Surrounding cellulitis appears resolved. MRI shows evidence of osteomyelitis. Was seen by orthopedics, appreciate Dr. Treadwell's consultation. At this point the patient would wish to try antibiotic therapy. He has chronic osteomyelitis. Would be at risk for PICC line placement due to diversion with history of ongoing substance abuse including met hamphetamine and marijuana as well as his history of medical noncompliance. At this point, reasonable alternative will be to begin oral antibiotics the form of doxycycline to cover residual soft tissue infection and start potential treatment of osteomyelitis with referral to infectious disease for further evaluation. Wound culture obtained at time of admission was without growth, though GPC's in clusters and chains were seen on Gram stain. Both Dr. Treadwell and I had extensive discussions with the patient about the risk of loss of toe and further amputations including potential for foot or BKA amputations without following up and addressing his toe wound as well as modifying his diet and attempting to control his diabetes. Patient acknowledged our concerns, but did not appear to take them that seriously. Plan: Discharge to home with doxycycline 100 mg twice daily, initially 2-week course with ultimate plan to refer back to ID for further evaluation and treatment recommendations. His acute soft tissue infection has resolved at the time of discharge. Discharge diagnosis: Chronic osteomyelitis right fifth toe Secondary discharge diagnosis: Uncontrolled type 2 diabetes mellitus, hemoglobin A1c 20.4% Methamphetamine abuse Hypertension Tobacco abuse Time spent discussing smoking cessation with patient: 3 to 10 minutes - Time Spent with Patient Total time spent providing and/or coordinating discharge services: Greater than 30 minutes Medical - DS: Exam - Constitutional Vitals: Vital Signs Temp Pulse Resp BP Pulse Ox 08/29/19 07:46 98 F 20 108/70 95 08/29/19 03:57 98.1 F 76 18 125/83 94 08/29/19 00:00 98 F 74 12 113/65 96 08/28/19 19:37 97.9 F 89 18 110/62 94 08/28/19 15:31 97.9 F 100 H 18 99/65 97 08/28/19 12:13 98.4 F 88 18 111/65 95 Intake and Output 08/28/19 08/29/19 08/29/19 22:59 05:59 13:59 Intake Total 900 Output Total 400 Balance 500 Intake: IV 900 Sodium Chloride 0.9% 1,000 ml @ 900 100 mls/hr IV .Q10H [facility] Rx#: [id number] Oral Output: Void Amount 400 Other: Meal Percent of Meal Consumed Feeding Ability Urine Appearance Clear Urine Color Pale Weight Additional comments: General: No acute distress Chest: Unlabored Cardiovascular: Regular on exam Abdomen: Soft Musculoskeletal: Right fifth digit without erythema. Callus on the top of the toe. No draining from the lateral area. Nontender. Medical - DS: Data Labs on day of discharge: Labs from last 24 hours 08/29/19 08/29/19 08/29/19 04:45 04:45 04:45 WBC 4.5 RBC 5.13 Hgb 14.7 Hct 45.2 MCV 88.1 MCH 28.7 MCHC 32.6 RDW 14.3 Plt Count 233 MPV 8.0 Gran % 51.1 Lymph % (Auto) 30.4 [place] % (Auto) 14.9 H Eos % (Auto) 3.1 Baso % (Auto) 0.5 Gran # 2.3 Lymph # (Auto) 1.4 L [place] # (Auto) 0.7 Eos # (Auto) 0.1 Baso # (Auto) 0 PT 12.6 INR 0.9 Sodium 138 Potassium 3.5 Chloride 101 Carbon Dioxide 22 Anion Gap 15.0 BUN 13 Creatinine 0.9 GFR Calculation 89 Glucose 285 H Calcium 8.8 Preliminary micro results at discharge 08/27/19 17:20 Blood Culture - Preliminary Blood 08/27/19 17:24 Blood Culture - Preliminary Blood 08/27/19 21:14 Wound Culture - Preliminary Toe - Fifth - Impressions Date of Service: 08/28/19 Procedure(s): MR foot RT wo con IMPRESSION: 1. Soft tissue swelling and edema in the right fifth digit 2. Bone marrow edema in the right fifth middle phalanx consistent with osteomyelitis Medical - DS: A/P - Patient/Caregiver Discharge Instructions Activity: increase activity as tolerated Diet: Consistent Carbohydrate - Follow up Plan Follow up with: Chilango Mcmillan MD [Primary Care Provider] - Malik Valles MD [Physician] - (1 week) Disposition: Home, Self-Care Care Plan Goals: Begin oral antibiotics for chronic osteomyelitis. Follow-up with infectious disease for further evaluation and treatment rec ommendations Prognosis: Fair Rehab Potential: Fair I certify that the patient requires SNF services: No Overall status at discharge: patient is back to baseline
[2019-08-29] MEDS: INSULIN GLARGINE, HUMAN 1 UNIT/0.01 ML SQ SCH (08:40)
[2019-08-29] MEDS: cefTRIAXone 1 GM VIAL IV SCH (08:41)
[2019-08-29] MEDS: CHLORTHALIDONE 25 MG TABLET PO SCH (08:41)
[2019-08-29] MEDS ORDERED: FLU VACC QS2019-20(6MOS UP)/PF 60 MCG/0.5 ML SYRINGE IM ONE (10:00)
[2019-08-29] MEDS ORDERED: WARFARIN 5 MG TABLET PO ONE (14:00)
== END 2019-08-29 09:31 | disposition home or self-care (01) | DRG 638 ==
LOC: ED 15:38 → MEDSUR 21:56
PROVIDERS: ADMIT Internal Medicine; ATTEND Internal Medicine

== ENCOUNTER 2020-05-15 17:44 | Inpatient (IN) ==
[2020-05-15] MEDS ORDERED: 0.9 % SODIUM CHLORIDE 1,000 ML IV ONE ×2 (18:15→22:19)
[2020-05-15 18:22] LABS: POC Blood Urea Nitrogen 40 mg/dl (8-23); POC CO2 25 mmol/L (22-30); POC Calcium, Ionized 1.05 mmol/L (1.16-1.32); POC Chloride 84 mmol/L (96-108); POC Creatinine 1.5 mg/dl (0.7-1.2); POC Glucose, Random 540 mg/dL (70-105); POC Potassium 2.5 mmol/L (3.3-5.1); POC Sodium 124 mmol/L (133-145)
[2020-05-15] MEDS ORDERED: INSULIN REGULAR, HUMAN 1 UNIT/0.01 ML UNIT IV ONE (18:23)
[2020-05-15] MEDS ORDERED: POTASSIUM CHLORIDE 40 MEQ in DEXTROSE 5% IN WATER 500 ML IV ONE (18:25)
[2020-05-15] MEDS ORDERED: INSULIN REGULAR, HUMAN 50 UNIT in 0.9 % SODIUM CHLORIDE 99.5 ML IV SCH (18:30)
[2020-05-15] MEDS ORDERED: POTASSIUM CHLORIDE 20 MEQ/10 ML VIAL IV ONE (18:34)
[2020-05-15 19:06] LABS: Basophils # (Auto) 0.03 K/mcL (0.00-0.30); Basophils % (Auto) 0.4 % (0.0-2.0); Eosinophils # (Auto) 0.07 K/mcL (0.00-0.70); Eosinophils % (Auto) 0.9 % (0.0-7.0); Granulocytes % (Auto) 65.2 % (38.0-78.0); Hematocrit 53.9 % (40.1-51.0); Hemoglobin 19.1 g/dL (13.7-17.5); Lymphocytes # (Auto) 1.71 K/mcL (1.50-4.80); Lymphocytes % (Auto) 22.1 % (15.5-49.0); Mean Cell Volume 81.4 fL (80.0-100.0); Mean Corpuscular HGB Conc 35.4 g/dL (31.0-36.0); Mean Platelet Volume 10.3 fL (7.4-10.4); Monocytes # (Auto) 0.88 K/mcL (0.10-0.90); Monocytes % (Auto) 11.4 % (1.0-12.0); Platelet Count 230 K/mcL (140-440); RBC 6.62 M/mcL (4.63-6.08); Red Cell Distribution Width 13.6 % (11.5-14.5); WBC 7.7 K/mcL (4.50-11.00)
[2020-05-15 19:07] LABS: ABG Methemoglobin 0.4 % (0.4-1.5); Total Hemoglobin 19.1 gm/dL (13.5-16.5); VBG Base Excess 3.1 (-2.0-2.0); VBG HCO3 24.9 mmol/L (24.0-28.0); VBG PCO2 31.3 mmHg (41.0-51.0); VBG PH 7.52 U (7.32-7.42); VBG PO2 205 mmHg (25-40); VBG Total CO2 25.8 mmol/L (25.0-29.0)
[2020-05-15 19:30] LABS: ALT/SGPT 22 U/l (0-40); AST/SGOT 21 U/l (0-37); Albumin 3.9 gm/dL (3.2-5.2); Albumin/Globulin Ratio 1.6 (1.0-2.3); Alkaline Phosphatase 126 U/L (39-117); Bilirubin,Total 1.7 mg/dL (0.0-1.0); Blood Urea Nitrogen 38 mg/dl (8-23); Calcium 9.1 mg/dl (8.6-10.4); Carbon Dioxide 24 mmol/L (22-30); Globulin 2.5 gm/dL (2.2-3.7); Glomerular Filtration Rate 48
[2020-05-15 19:32] LABS: Chloride 80 mmol/L (96-108); Glucose 545 mg/dL (70-105)
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
[2020-05-15 20:52] LABS: INR 1.1 (0.9-1.1); Prothrombin Time 14.4 sec (11.9-14.5)
[2020-05-15 21:14] LABS: Phosphorous 3.8 mg/dL (2.7-4.5)
[2020-05-15 22:05] LABS: Appearance,Urine HAZY; Bacteria,Urine FEW /hpf (0); Bilirubin,Urine NEG (NEG); Color,Urine STRAW; Culture Indicated,Urine YES; Glucose,Urine (UA) >=500 mg/dL (NEG); Ketones,Urine NEG (NEG); Leukocyte Esterase,Urine 250 /uL (NEG); Nitrate,Urine NEG (NEG); Protein,Urine NEG (NEG); Specific Gravity,Urine 1.016 (1.000-1.035); Urine Blood 0.03 mg/dL (<0.03); Urine RBC 4 /hpf (0-1); Urine Squamous Epithelial Cell 1 /hpf (0-4); Urine WBC 15 /hpf (0-4); Urobilinogen,Urine NEG (NEG)
[2020-05-15] MEDS ORDERED: 0.9 % SODIUM CHLORIDE 1,000 ML IV SCH (22:19)
[2020-05-15] MEDS ORDERED: IPRATROPIUM/ALBUTEROL 3 ML AMPUL.NEB NEB PRN (22:19)
[2020-05-15] MEDS ORDERED: SENNOSIDES 1 TABLET PO PRN (22:19)
[2020-05-15] MEDS ORDERED: POTASSIUM CHLORIDE 20 MEQ TABLET PO PRN ×2 (22:19)
[2020-05-15] MEDS ORDERED: MAGNESIUM SULFATE 2 GM/50 ML BAG IV PRN (22:19)
[2020-05-15] MEDS ORDERED: ACETAMINOPHEN 325 MG TABLET PO PRN (22:19)
[2020-05-15] MEDS ORDERED: ONDANSETRON 4 MG/2 ML VIAL IV PRN (22:19)
[2020-05-15] MEDS ORDERED: POTASSIUM CHLORIDE 20 MEQ TABLET PO ONE ×2 (22:19→22:38)
[2020-05-15] MEDS ORDERED: POTASSIUM CHLORIDE 40 MEQ in DEXTROSE 5% IN WATER 500 ML IV PRN (22:19)
[2020-05-15] MEDS ORDERED: POLYETHYLENE GLYCOL 3350 17 GM PACKET PO PRN (22:19)
[2020-05-15] MEDS ORDERED: METOCLOPRAMIDE 10 MG/2 ML VIAL IV PRN (22:19)
[2020-05-15] MEDS ORDERED: METOPROLOL TARTRATE 5 MG/5 ML VIAL IV PRN (22:19)
[2020-05-15] MEDS: 0.9 % SODIUM CHLORIDE 10 ML SYRINGE IV SCH (22:42)
[2020-05-15] MEDS: DOCUSATE SODIUM 100 MG CAPSULE PO SCH (22:43)
[2020-05-16 00:18] LABS: Estimated Average Glucose(eAG) 461 mg/dL; Hemoglobin A1C 17.7 % HGB (4.0-6.0)
[2020-05-16] MEDS: INSULIN REGULAR, HUMAN 50 UNIT in 0.9 % SODIUM CHLORIDE 99.5 ML IV SCH ×2 (00:32→06:21)
[2020-05-16] MEDS ORDERED: INSULIN REGULAR, HUMAN 1 UNIT/0.01 ML UNIT ONE ×2 (00:32→04:40)
[2020-05-16 00:40] LABS: Amphetamine Screen,Urine NONE DETECTED (NONDETECTED); Barbiturate Screen,Urine NONE DETECTED (NONDETECTED); Benzodiazepines Screen,Urine NONE DETECTED (NONDETECTED); Cannabinoid Screen,Urine NONE DETECTED (NONDETECTED); Cocaine Screen,Urine NONE DETECTED (NONDETECTED); Opiate Screen,Urine NONE DETECTED (NONDETECTED); Oxycodone, Urine Screen NONE DETECTED (NONDETECTED); Phencyclidine Screen,Urine NONE DETECTED (NONDETECTED)
[2020-05-16] MEDS: DEXTROSE 5%-NS 1,000 ML IV SCH ×2 (04:42)
[2020-05-16] MEDS: 0.9 % SODIUM CHLORIDE 10 ML SYRINGE IV SCH (05:35)
[2020-05-16 06:38] LABS: Basophils # (Auto) 0.03 K/mcL (0.00-0.30); Basophils % (Auto) 0.5 % (0.0-2.0); Eosinophils # (Auto) 0.15 K/mcL (0.00-0.70); Eosinophils % (Auto) 2.3 % (0.0-7.0); Granulocytes % (Auto) 54.9 % (38.0-78.0); Hematocrit 53.4 % (40.1-51.0); Hemoglobin 17.9 g/dL (13.7-17.5); Lymphocytes # (Auto) 1.96 K/mcL (1.50-4.80); Lymphocytes % (Auto) 30.6 % (15.5-49.0); Mean Cell Volume 83.8 fL (80.0-100.0); Mean Corpuscular HGB Conc 33.5 g/dL (31.0-36.0); Mean Platelet Volume 10.7 fL (7.4-10.4); Monocytes # (Auto) 0.75 K/mcL (0.10-0.90); Monocytes % (Auto) 11.7 % (1.0-12.0); Platelet Count 231 K/mcL (140-440); RBC 6.37 M/mcL (4.63-6.08); WBC 6.4 K/mcL (4.50-11.00)
--- NOTE | 2020-05-16 07:12 | Internal Med Progress Note ---
SUBJECTIVE Subjective Patient information: Note initiated : 05/16/20 at 7:09 am Service Date, if different from initiated Date: [] Patient: Reynaldo Campos a 64 y/o M admitted on 05/15/20 for elevated blood glucose, 475. Chief Complaint: [] Interval history: History of present illness: Mr. Campos is a 64 year old M Who reports the ED for not feeling well for 5 days with poor appetite and elevated blood sugars. He does not regularly check his blood sugars but did check them today and noted him to be quite high. He also does not take his insulin on a regular basis. He also does not adhere to diabetic diet. No recent illnesses. In the ED he was found to have blood sugar in the mid 500s with elevated creatinine and low potassium. No acidosis. He was started on insulin drip. 05/16 Feeling a little better today. Electrolyte imbalance still present but improving. Sugars under control with drip and will transition to subcutaneous insulin. Counseled him on importance of taking his insulin daily and monitoring of blood glucose. Review of Systems: denies headache/fever/chills/nausea/vomiting/chest or abdominal pain/cough/dyspnea/diarrhea. Otherwise see above. Constitutional Vitals: Vital Signs Temp Pulse Resp BP Pulse Ox 97.0 F 65 19 105/77 95 05/16/20 04:26 05/15/20 22:30 05/16/20 06:26 05/16/20 06:26 05/16/20 06:26 Period Temp Pulse Resp BP Sys/Bates Pulse Ox Last 24 Hr 97.0 F-97.3 F 65-164 12-19 91-118/66-81 93-100 Intake and Output 05/15/20 05/16/20 05/16/20 21:59 05:59 13:59 Intake Total 1054 2840 Output Total 600 1350 450 Balance 454 1490 -450 Weight 88.451 kg 89.131 kg Intake & Output: Intake & Output 05/15/20 05/16/20 05/16/20 21:59 05:59 13:59 Intake Total 1054 2840 Output Total 600 1350 450 Balance 454 1490 -450 Weight 88.451 kg 89.131 kg Intake: IV 1054 2604 Sodium Chloride 0.9% 1,000 ml @ 1000 1000 Wide Open IV BOLUS ONE Rx#: [id number] Dextrose 5%-Ns IV Solution 1, 940 000 ml @ 200 mls/hr IV .Q5H [facility] Rx#:[id number] HumuLIN R 50 UNIT In Sodium 198 Chloride 0.9% 99.5 ml @ 8.8 UNIT/HR 17.6 mls/hr IV DUR [facility] Rx#:[id number] Potassium Chloride 40 Meq In 54 466 Dextrose 5% in Water 500 ml @ 130 mls/hr IV ONCE ONE Rx#: [id number] Oral 236 Output: Void Amount 600 1350 450 Other: Urine Appearance Clear Clear Urine Color Bright Yellow Pale Urine Odor Normal Exam: General: Alert, Awake, No acute Distress Eyes/N/T: EOMI, Head/Neck: neck supple, CV: reg at this time, No murmurs, normal s1/s2 Pulm: Clear b/l, no wheezing/rhonchi/rales Abd: soft, nontender, +BS x4 Ext: no clubbing/cyanosis/edema Neuro: Alert, no focal deficits, moves all extremities, decreased sensations bilateral lower extremities chronic Skin: warm/dry OBJ DATA Labs CBC & Chem 7: 05/16/20 05:00 05/16/20 05:00 Labs: Abnormal Lab Results 05/16/20 05/15/20 05/15/20 05:00 20:52 20:52 RBC 6.37 H Hgb 17.9 H Hct 53.4 H POC Hct MPV 10.7 H VBG pH VBG pCO2 VBG pO2 VBG O2 Saturation VBG Base Excess Carboxyhemoglobin Total Hemoglobin POC Sodium Sodium POC Potassium Potassium POC Chloride Chloride Anion Gap POC BUN BUN Creatinine POC Creatinine Glucose POC Glucose Hemoglobin A1c 17.7 H POC WB Ioniz Calcium Total Bilirubin Alkaline Phosphatase Urine Glucose (UA) >=500 A Urine Occult Blood 0.03 A Ur Leukocyte Esterase 250 A Urine RBC 4 H Urine WBC 15 H Urine Bacteria Few A 05/15/20 05/15/20 05/15/20 18:12 18:12 18:12 RBC 6.62 H Hgb 19.1 H Hct 53.9 H POC Hct 59.0 H MPV VBG pH 7.52 H VBG pCO2 31.3 L VBG pO2 205 H* VBG O2 Saturation 97.0 H VBG Base Excess 3.1 H Carboxyhemoglobin 2.2 H Total Hemoglobin 19.1 H POC Sodium 124 L Sodium 122 L POC Potassium 2.5 L* Potassium 2.8 L* POC Chloride 84 L Chloride 80 L Anion Gap 18.0 H POC BUN 40 H BUN 38 H Creatinine 1.5 H POC Creatinine 1.5 H Glucose 545 H* POC Glucose 540 H* Hemoglobin A1c POC WB Ioniz Calcium 1.05 L Total Bilirubin 1.7 H Alkaline Phosphatase 126 H Urine Glucose (UA) Urine Occult Blood Ur Leukocyte Esterase Urine RBC Urine WBC Urine Bacteria Meds: Medications Acetaminophen (Tylenol) 650 mg PO Q6HP PRN PRN Reason: PAIN/FEVER > 101 Albuterol/Ipratropium (Duoneb) 3 ml NEB Q4HP PRN PRN Reason: Shortness Of Breath Diagnostic Test (Pha) (Accu-Chek) 1 each FS Q1 [facility] Last Admin: 05/16/20 06:23 Dose: 1 each Documented by: Docusate Sodium (Colace) 100 mg PO BID [facility] Last Admin: 05/15/20 22:43 Dose: Not Given Documented by: Insulin Human Regular 50 unit/ (Sodium Chloride) 100 mls @ 17.6 mls/hr IV DUR [facility]; Protocol Last Admin: 05/16/20 06:21 Dose: 10.3 unit/hr, 20.6 mls/hr Documented by: Potassium Chloride 40 meq/ (Dextrose) 520 mls @ 130 mls/hr IV UD PRN PRN Reason: Potassium < 3 Magnesium Sulfate (Magnesium Sulfate) 2 gm in 50 mls @ 50 mls/hr IV UD PRN PRN Reason: Magnesium </= 1.6 Dextrose/Sodium Chloride (Dextrose 5%-Ns Iv Solution) 1,000 mls @ 200 mls/hr IV .Q5H [facility] Last Admin: 05/16/20 04:42 Dose: 200 mls/hr Documented by: Metoclopramide HCl (Reglan) 10 mg IV Q6HP PRN PRN Reason: Nausea And Vomiting Metoprolol Tartrate (Lopressor) 5 mg IV Q2HP PRN PRN Reason: Tachyarrhythmias HR>110 Ondansetron HCl (Zofran) 4 mg IV Q4HP PRN PRN Reason: Nausea And Vomiting Polyethylene Glycol (Miralax) 17 gm PO DAILYP PRN PRN Reason: Constipation Potassium Chloride (Kdur) 40 meq PO UD PRN PRN Reason: Potssium is 3-3.5 Potassium Chloride (Kdur) 40 meq PO UD PRN PRN Reason: Potassium < 3 Senna (Senokot) 2 tab PO DAILYP PRN PRN Reason: Constipation Sodium Chloride (Saline Flush) 10 ml IV Q8 [facility] Last Admin: 05/16/20 05:35 Dose: Not Given Documented by: Warfarin Sodium (Coumadin Per Pharmacy) 1 order PO DAILY@1400 [facility] ABG Interpretation ABG results: 05/15/20 18:12 ABG Methemoglobin 0.4 VBG pH 7.52 H VBG pCO2 31.3 L VBG pO2 205 H* VBG HCO3 24.9 VBG Total CO2 25.8 VBG O2 Saturation 97.0 H VBG Base Excess 3.1 H A/P Narrative A/P Narrative: A: *HHS (h/o DM poorly controlled: -A1c 17.7 *Hypokalemia/hyponatremia with pseudo component: *CRIS on CKD III: follows with dr vidal *PAF: on warfarin/bb *Hemoconcentrated: *HTN/HLD: *Tobacco abuse P: -Insulin drip to home insulin -Serial chemistries -IVF -DM education -cont BB, hold thiazide -pt/ot -Smoking cessation counseling -ppx: warfarin per pharm full code Time Spent With Patient Time: Total time spent is greater than 50% in coordination of care (as documented) at patient's floor/unit and/or counseling patient:
[2020-05-16] MEDS ORDERED: WARFARIN 5 MG TABLET PO SCH (07:15)
[2020-05-16 07:30] LABS: ALT/SGPT 18 U/l (0-40); AST/SGOT 19 U/l (0-37); Albumin 3.4 gm/dL (3.2-5.2); Albumin/Globulin Ratio 1.3 (1.0-2.3); Alkaline Phosphatase 100 U/L (39-117); Bilirubin,Direct 0.2 mg/dL (0.0-0.3); Bilirubin,Total 0.9 mg/dL (0.0-1.0); Blood Urea Nitrogen 30 mg/dl (8-23); Calcium 8.8 mg/dl (8.6-10.4); Carbon Dioxide 26 mmol/L (22-30); Chloride 95 mmol/L (96-108); Globulin 2.6 gm/dL (2.2-3.7); Glomerular Filtration Rate 52; Glucose 149 mg/dL (70-105); Lactate Dehydrogenase 156 U/L (94-250); Phosphorous 1.8 mg/dL (2.7-4.5); Triglycerides 603 mg/dl (<150); Uric Acid 11.3 mg/dL (2.5-8.0)
--- NOTE | 2020-05-16 07:47 | XRay Report ---
HISTORY: Generalized weakness, hyperglycemia FINDINGS: There are symmetric prominent nipple shadows overlying the lower thorax. The lungs are clear and well expanded. The heart size, pulmonary vasculature, mediastinum, geremias and pleura are normal. Arthritis is present in the acromioclavicular joints bilaterally. Comparison with the prior exam done on 08/26/19 shows better inspiration on today's exam. IMPRESSION: Normal exam Interpreted and Authenticated by: Carl Mayers 05/16/20
[2020-05-16 07:51] LABS: INR 1.1 (0.9-1.1); Prothrombin Time 14.3 sec (11.9-14.5)
[2020-05-16] MEDS ORDERED: POTASSIUM CHLORIDE 80 MEQ in DEXTROSE 5% IN WATER 1,000 ML IV ONE (08:00)
[2020-05-16] MEDS ORDERED: POTASSIUM CHLORIDE 20 MEQ TABLET PO ONE (08:00)
[2020-05-16] MEDS ORDERED: DEXTROSE 31 GM ORAL.SUSP PO PRN (08:02)
[2020-05-16] MEDS ORDERED: DEXTROSE 50% 50 ML VIAL IV PRN (08:02)
[2020-05-16] MEDS: BISOPROLOL 5 MG TABLET PO SCH (08:03)
[2020-05-16] MEDS: 0.9 % SODIUM CHLORIDE 1,000 ML IV SCH ×2 (08:29→16:31)
[2020-05-16] MEDS: INSULIN GLARGINE, HUMAN 1 UNIT/0.01 ML SQ SCH ×2 (09:27→20:29)
[2020-05-16] MEDS: NEUTRA PHOS 1 PACKET PO SCH ×2 (09:27→20:28)
[2020-05-16] MEDS: INSULIN, 75/25 NPL/LISPRO 1 UNIT/0.01 ML UNIT SQ SCH ×2 (09:28→16:38)
[2020-05-16] MEDS: ENOXAPARIN 80 MG/0.8 ML SYRINGE SQ SCH (09:31)
[2020-05-16] MEDS: DOCUSATE SODIUM 100 MG CAPSULE PO SCH ×2 (09:32→20:28)
--- NOTE | 2020-05-16 10:57 | Discharge Summary ---
Discharge Provider Provider Patient information: Note initiated : 05/16/20 at 10:56 am Service Date, if different from initiated Date: [] Patient: Reynaldo Camops 64 y/o M admitted on 05/15/20 for elevated blood glucose, 475. Chief Complaint: [] Date of admission: 05/15/20 22:04 Discharge date: 05/18/20 Primary care physician: Dia Cabrera Consults: 05/15/20 Consult to Physician [CONS] Stat Comment: Consulting Provider: Mark Acosta Reason For Exam: Physician to Consult Discharge Meds Discharge Medications Home Medications alfuzosin 10 mg tablet,extended release 24 hr 10 mg PO QDAY tab 09/02/19 [History Confirmed 05/16/20 Last Taken 05/15/20 17:00] bisoprolol fumarate 10 mg tablet 5 mg PO QAM tab 09/02/19 [History Confirmed 05/16/20 Last Taken 05/15/20 17:00] Novolog Mix 70-30 U-100 Insuln 15 units SUBCUT BID 05/15/20 [History Confirmed 05/16/20 Last Taken 05/15/20 17:00] ciprofloxacin HCl [Cipro] 500 mg PO Q12H #10 tab 05/16/20 [Rx Last Taken Unknown] gemfibrozil 600 mg PO BIDAC #60 tab 05/18/20 [Rx Last Taken Unknown] insulin glargine [Lantus U-100 Insulin] 45 unit SUBCUT BID #1 ml 05/18/20 [Rx Last Taken Unknown] warfarin 6 mg PO DAILY #30 tab 05/18/20 [Rx Last Taken Unknown] COURSE Hospital Course Hospital course: History of present illness: Mr. Campos is a 64 year old M Who reports the ED for not feeling well for 5 days with poor appetite and elevated blood sugars. He does not regularly check his blood sugars but did check them today and noted him to be quite high. He also does not take his insulin on a regular basis. He also does not adhere to diabetic diet. No recent illnesses. In the ED he was found to have blood sugar in the mid 500s with elevated creatinine and low potassium. No acidosis. He was started on insulin drip. 05/16 Feeling a little better today. Electrolyte imbalance still present but improving. Sugars under control with drip and will transition to subcutaneous insulin. Counseled him on importance of taking his insulin daily and monitoring of blood glucose. 05/17 No new complaints today. Continues to feel better. Electrolyte abnormalities and titrating up insulin still. 05/18 Doing well. No new complaints. Stable for discharge. A: *Hyperglycemia (h/o DM poorly controlled): -A1c 17.7 *Hypokalemia/hyponatremia with pseudo component: improved *CRIS on CKD III: follows with dr vidal -improved *PAF: on warfarin/bb *UTI: *Hemoconcentrated: *HTN/HLD: *Tobacco abuse: *Hypertriglyceridemia: not taking statin regularly * Discharge diagnosis: HHS electrolyte abnormalities acute kidney injury, medication noncompliance Secondary discharge diagnosis: Hypertension tobacco abuse paroxysmal atrial fibrillation chronic kidney disease Time Spent with Patient Time attestation: Total time spent providing and/or coordinating discharge services: Time spent: Greater than 30 minutes EXAM Constitutional Vitals: Temp Pulse Resp BP Pulse Ox 98.0 F 65 13 82/52 97 05/16/20 08:03 05/15/20 22:30 05/16/20 08:03 05/16/20 08:03 05/16/20 08:03 Discharge Data Data Completed and Pending Labs on day of discharge: Labs from last 24 hours 05/16/20 05/16/20 05/16/20 05:00 05:00 05:00 WBC 6.4 RBC 6.37 H Hgb 17.9 H Hct 53.4 H POC Hct MCV 83.8 MCH 28.1 MCHC 33.5 RDW 14.0 Plt Count 231 MPV 10.7 H Gran % 54.9 Lymph % (Auto) 30.6 [place] % (Auto) 11.7 Eos % (Auto) 2.3 Baso % (Auto) 0.5 Gran # 3.51 Lymph # (Auto) 1.96 [place] # (Auto) 0.75 Eos # (Auto) 0.15 Baso # (Auto) 0.03 PT INR ABG Methemoglobin VBG pH VBG pCO2 VBG pO2 VBG HCO3 VBG Total CO2 VBG O2 Saturation VBG Base Excess Carboxyhemoglobin Total Hemoglobin O2 Delivery Level POC Sodium Sodium 136 POC Potassium Potassium 2.4 L* POC Chloride Chloride 95 L Carbon Dioxide 26 POC Total CO2 Anion Gap 15.0 POC BUN BUN 30 H Creatinine 1.4 H POC Creatinine GFR Calculation 52 Glucose 149 H POC Glucose Hemoglobin A1c Estim Average Glucose Osmolality 297 Uric Acid 11.3 H Calcium 8.8 POC WB Ioniz Calcium Phosphorus 1.8 L Magnesium 2.4 Total Bilirubin 0.9 Direct Bilirubin 0.2 GGT 26 AST 19 ALT 18 Alkaline Phosphatase 100 Lactate Dehydrogenase 156 Total Protein 6.0 Albumin 3.4 Globulin 2.6 Albumin/Globulin Ratio 1.3 Triglycerides 603 H Beta-Hydroxybutyrate Urine Color Urine Appearance Urine pH Ur Specific [place] Urine Protein Urine Glucose (UA) Urine Ketones Urine Occult Blood Urine Nitrate Urine Bilirubin Urine Urobilinogen Ur Leukocyte Esterase Urine RBC Urine WBC Ur Squamous Epith Cells Urine Bacteria Ur Culture Indicated? Urine Opiates Screen Ur Opiates Confirm Ur Oxycodone Screen Urine Methadone Screen Ur Methadone Confirm Ur Barbiturates Screen Ur Barbiturate Confirm Ur Phencyclidine Scrn Urine PCP Confirm Ur Amphetamines Screen U Amphetamines Confirm U Benzodiazepines Scrn U Benzodiazepine Confm Urine Cocaine Screen Urine Cocaine Confirm U Cannabinoids Confirm U Marijuana (THC) Screen 05/16/20 05/15/20 05/15/20 05:00 20:52 20:52 WBC RBC Hgb Hct POC Hct MCV MCH MCHC RDW Plt Count MPV Gran % Lymph % (Auto) [place] % (Auto) Eos % (Auto) Baso % (Auto) Gran # Lymph # (Auto) [place] # (Auto) Eos # (Auto) Baso # (Auto) PT 14.3 INR 1.1 ABG Methemoglobin VBG pH VBG pCO2 VBG pO2 VBG HCO3 VBG Total CO2 VBG O2 Saturation VBG Base Excess Carboxyhemoglobin Total Hemoglobin O2 Delivery Level POC Sodium Sodium POC Potassium Potassium POC Chloride Chloride Carbon Dioxide POC Total CO2 Anion Gap POC BUN BUN Creatinine POC Creatinine GFR Calculation Glucose POC Glucose Hemoglobin A1c 17.7 H Estim Average Glucose 461 Osmolality Uric Acid Calcium POC WB Ioniz Calcium Phosphorus Magnesium Total Bilirubin Direct Bilirubin GGT AST ALT Alkaline Phosphatase Lactate Dehydrogenase Total Protein Albumin Globulin Albumin/Globulin Ratio Triglycerides Beta-Hydroxybutyrate Urine Color Urine Appearance Urine pH Ur Specific [place] Urine Protein Urine Glucose (UA) Urine Ketones Urine Occult Blood Urine Nitrate Urine Bilirubin Urine Urobilinogen Ur Leukocyte Esterase Urine RBC Urine WBC Ur Squamous Epith Cells Urine Bacteria Ur Culture Indicated? Urine Opiates Screen None detected Ur Opiates Confirm Not Reportable Ur Oxycodone Screen None detected Urine Methadone Screen None detected Ur Methadone Confirm Not Reportable Ur Barbiturates Screen None detected Ur Barbiturate Confirm Not Reportable Ur Phencyclidine Scrn None detected Urine PCP Confirm Not Reportable Ur Amphetamines Screen None detected U Amphetamines Confirm Not Reportable U Benzodiazepines Scrn None detected U Benzodiazepine Confm Not Reportable Urine Cocaine Screen None detected Urine Cocaine Confirm Not Reportable U Cannabinoids Confirm Not Reportable U Marijuana (THC) Screen None detected 05/15/20 05/15/20 05/15/20 20:52 18:12 18:12 WBC RBC Hgb Hct POC Hct MCV MCH MCHC RDW Plt Count MPV Gran % Lymph % (Auto) [place] % (Auto) Eos % (Auto) Baso % (Auto) Gran # Lymph # (Auto) [place] # (Auto) Eos # (Auto) Baso # (Auto) PT INR ABG Methemoglobin 0.4 VBG pH 7.52 H VBG pCO2 31.3 L VBG pO2 205 H* VBG HCO3 24.9 VBG Total CO2 25.8 VBG O2 Saturation 97.0 H VBG Base Excess 3.1 H Carboxyhemoglobin 2.2 H Total Hemoglobin 19.1 H O2 Delivery Level Not Reportable POC Sodium Sodium POC Potassium Potassium POC Chloride Chloride Carbon Dioxide POC Total CO2 Anion Gap POC BUN BUN Creatinine POC Creatinine GFR Calculation Glucose POC Glucose Hemoglobin A1c Estim Average Glucose Osmolality Uric Acid Calcium POC WB Ioniz Calcium Phosphorus Magnesium Total Bilirubin Direct Bilirubin GGT AST ALT Alkaline Phosphatase Lactate Dehydrogenase Total Protein Albumin Globulin Albumin/Globulin Ratio Triglycerides Beta-Hydroxybutyrate 0.27 Urine Color Straw Urine Appearance Hazy Urine pH 7.0 Ur Specific [place] 1.016 Urine Protein Neg Urine Glucose (UA) >=500 A Urine Ketones Neg Urine Occult Blood 0.03 A Urine Nitrate Neg Urine Bilirubin Neg Urine Urobilinogen Neg Ur Leukocyte Esterase 250 A Urine RBC 4 H Urine WBC 15 H Ur Squamous Epith Cells 1 Urine Bacteria Few A Ur Culture Indicated? Yes Urine Opiates Screen Ur Opiates Confirm Ur Oxycodone Screen Urine Methadone Screen Ur Methadone Confirm Ur Barbiturates Screen Ur Barbiturate Confirm Ur Phencyclidine Scrn Urine PCP Confirm Ur Amphetamines Screen U Amphetamines Confirm U Benzodiazepines Scrn U Benzodiazepine Confm Urine Cocaine Screen Urine Cocaine Confirm U Cannabinoids Confirm U Marijuana (THC) Screen 05/15/20 05/15/20 05/15/20 18:12 18:12 18:05 WBC 7.7 RBC 6.62 H Hgb 19.1 H Hct 53.9 H POC Hct 59.0 H MCV 81.4 MCH 28.9 MCHC 35.4 RDW 13.6 Plt Count 230 MPV 10.3 Gran % 65.2 Lymph % (Auto) 22.1 [place] % (Auto) 11.4 Eos % (Auto) 0.9 Baso % (Auto) 0.4 Gran # 5.05 Lymph # (Auto) 1.71 [place] # (Auto) 0.88 Eos # (Auto) 0.07 Baso # (Auto) 0.03 PT INR ABG Methemoglobin VBG pH VBG pCO2 VBG pO2 VBG HCO3 VBG Total CO2 VBG O2 Saturation VBG Base Excess Carboxyhemoglobin Total Hemoglobin O2 Delivery Level POC Sodium 124 L Sodium 122 L POC Potassium 2.5 L* Potassium 2.8 L* POC Chloride 84 L Chloride 80 L Carbon Dioxide 24 POC Total CO2 25 Anion Gap 18.0 H POC BUN 40 H BUN 38 H Creatinine 1.5 H POC Creatinine 1.5 H GFR Calculation 48 Glucose 545 H* POC Glucose 540 H* Hemoglobin A1c Estim Average Glucose Osmolality Uric Acid Calcium 9.1 POC WB Ioniz Calcium 1.05 L Phosphorus 3.8 Magnesium 2.2 Total Bilirubin 1.7 H Direct Bilirubin GGT AST 21 ALT 22 Alkaline Phosphatase 126 H Lactate Dehydrogenase Total Protein 6.4 Albumin 3.9 Globulin 2.5 Albumin/Globulin Ratio 1.6 Triglycerides Beta-Hydroxybutyrate Urine Color Urine Appearance Urine pH Ur Specific [place] Urine Protein Urine Glucose (UA) Urine Ketones Urine Occult Blood Urine Nitrate Urine Bilirubin Urine Urobilinogen Ur Leukocyte Esterase Urine RBC Urine WBC Ur Squamous Epith Cells Urine Bacteria Ur Culture Indicated? Urine Opiates Screen Ur Opiates Confirm Ur Oxycodone Screen Urine Methadone Screen Ur Methadone Confirm Ur Barbiturates Screen Ur Barbiturate Confirm Ur Phencyclidine Scrn Urine PCP Confirm Ur Amphetamines Screen U Amphetamines Confirm U Benzodiazepines Scrn U Benzodiazepine Confm Urine Cocaine Screen Urine Cocaine Confirm U Cannabinoids Confirm U Marijuana (THC) Screen 05/15/20 18:05 WBC RBC Hgb Hct POC Hct MCV MCH MCHC RDW Plt Count MPV Gran % Lymph % (Auto) [place] % (Auto) Eos % (Auto) Baso % (Auto) Gran # Lymph # (Auto) [place] # (Auto) Eos # (Auto) Baso # (Auto) PT 14.4 INR 1.1 ABG Methemoglobin VBG pH VBG pCO2 VBG pO2 VBG HCO3 VBG Total CO2 VBG O2 Saturation VBG Base Excess Carboxyhemoglobin Total Hemoglobin O2 Delivery Level POC Sodium Sodium POC Potassium Potassium POC Chloride Chloride Carbon Dioxide POC Total CO2 Anion Gap POC BUN BUN Creatinine POC Creatinine GFR Calculation Glucose POC Glucose Hemoglobin A1c Estim Average Glucose Osmolality Uric Acid Calcium POC WB Ioniz Calcium Phosphorus Magnesium Total Bilirubin Direct Bilirubin GGT AST ALT Alkaline Phosphatase Lactate Dehydrogenase Total Protein Albumin Globulin Albumin/Globulin Ratio Triglycerides Beta-Hydroxybutyrate Urine Color Urine Appearance Urine pH Ur Specific [place] Urine Protein Urine Glucose (UA) Urine Ketones Urine Occult Blood Urine Nitrate Urine Bilirubin Urine Urobilinogen Ur Leukocyte Esterase Urine RBC Urine WBC Ur Squamous Epith Cells Urine Bacteria Ur Culture Indicated? Urine Opiates Screen Ur Opiates Confirm Ur Oxycodone Screen Urine Methadone Screen Ur Methadone Confirm Ur Barbiturates Screen Ur Barbiturate Confirm Ur Phencyclidine Scrn Urine PCP Confirm Ur Amphetamines Screen U Amphetamines Confirm U Benzodiazepines Scrn U Benzodiazepine Confm Urine Cocaine Screen Urine Cocaine Confirm U Cannabinoids Confirm U Marijuana (THC) Screen Discharge Plan Patient/Caregiver Discharge Instructions Activity: increase activity as tolerated Diet: Consistent Carbohydrate Prescriptions: New ciprofloxacin HCl [Cipro] 500 mg tablet 500 mg PO Q12H Qty: 10 RF: 0 warfarin 6 mg tablet 6 mg PO DAILY Qty: 30 RF: 0 Lantus U-100 Insulin 100 unit/mL Solution 45 unit subcut BID Qty: 1 RF: 0 gemfibrozil 600 mg Tablet 600 mg PO BIDAC Qty: 60 RF: 0 Continued bisoprolol fumarate 10 mg tablet 10 mg tablet 5 mg PO QAM RF: 0 alfuzosin 10 mg tablet extended release 24 hr 10 mg PO QDAY RF: 0 Novolog Mix 70-30 U-100 Insuln 15 units subcut BID RF: 0 Discontinued warfarin [Coumadin] 5 mg tablet See Rx Instructions .ROUTE .COMPLEX RF: 0 atorvastatin 80 mg tablet 80 mg PO QHS RF: 0 chlorthalidone 25 mg tablet 25 mg PO QDAY RF: 0 insulin glargine 1 UNIT/0.01 ML unit 35 unit SQ BID RF: 0 Other Ambulatory Orders: Prothrombin Time INR (Routine) Timeframe: 2 Days Facility: [email or web address] - Location: Laboratory Ordered By: Mark Acosta Follow Up Plan Follow up with: Dia Cabrera MD [Primary Care Provider] - Patient Disposition: Home, Self-Care Prognosis: Fair Rehab Potential: Undetermined Overall status at discharge: patient is progressing back to baseline Discharge Orders: Discharge Order (Routine); Ordered 05/18/20 Ordered By: Mark Acosta
[2020-05-16] MEDS: cefTRIAXone 2 GM in DEXTROSE 5% IN WATER 50 ML IV SCH (11:00)
[2020-05-16] MEDS ORDERED: POTASSIUM CHLORIDE 40 MEQ in DEXTROSE 5% IN WATER 500 ML IV ONE ×2 (12:00→14:30)
[2020-05-16] MEDS: INSULIN LISPRO 1 UNIT/0.01 ML UNIT SQ SCH ×4 (12:28→23:51)
[2020-05-16] MEDS ORDERED: WARFARIN 3 MG TABLET PO ONE (14:00)
[2020-05-16] MEDS ORDERED: ATORVASTATIN 40 MG TABLET PO SCH (21:00)
[2020-05-17] MEDS: INSULIN LISPRO 1 UNIT/0.01 ML UNIT SQ SCH ×6 (04:30→23:43)
[2020-05-17 06:42] LABS: Hematocrit 49.6 % (40.1-51.0); Hemoglobin 16.7 g/dL (13.7-17.5)
[2020-05-17 06:45] LABS: INR 1.1 (0.9-1.1); Prothrombin Time 14.7 sec (11.9-14.5)
--- NOTE | 2020-05-17 06:53 | Internal Med Progress Note ---
SUBJECTIVE Subjective Patient information: Note initiated : 05/17/20 at 6:51 am Service Date, if different from initiated Date: [] Patient: Reynadlo Campos a 64 y/o M admitted on 05/15/20 for elevated blood glucose, 475. Chief Complaint: [] Interval history: History of present illness: Mr. Campos is a 64 year old M Who reports the ED for not feeling well for 5 days with poor appetite and elevated blood sugars. He does not regularly check his blood sugars but did check them today and noted him to be quite high. He also does not take his insulin on a regular basis. He also does not adhere to diabetic diet. No recent illnesses. In the ED he was found to have blood sugar in the mid 500s with elevated creatinine and low potassium. No acidosis. He was started on insulin drip. 05/16 Feeling a little better today. Electrolyte imbalance still present but improving. Sugars under control with drip and will transition to subcutaneous insulin. Counseled him on importance of taking his insulin daily and monitoring of blood glucose. 05/17 No new complaints today. Continues to feel better. Electrolyte abnormalities and titrating up insulin still. Review of Systems: denies headache/fever/chills/nausea/vomiting/chest or abdominal pain/cough/ dyspnea/diarrhea. Otherwise see above. Constitutional Vitals: Vital Signs Temp Pulse Resp BP Pulse Ox 98.8 F 78 17 114/63 95 05/17/20 04:01 05/16/20 10:01 05/17/20 04:33 05/17/20 04:01 05/17/20 04:33 Period Temp Pulse Resp BP Sys/Bates Pulse Ox Last 24 Hr 97.5 F-98.8 F 78 11-22 82-140/52-79 90-100 Intake and Output 05/16/20 05/17/20 05/17/20 21:59 05:59 13:59 Intake Total 2840 1000 Output Total 2300 2450 Balance 540 -1450 Weight 91.852 kg Intake & Output: Intake & Output 05/16/20 05/17/20 05/17/20 21:59 05:59 13:59 Intake Total 2840 1000 Output Total 2300 2450 Balance 540 -1450 Weight 91.852 kg Intake: IV 2040 1000 Sodium Chloride 0.9% 1,000 ml @ 1000 1000 125 mls/hr IV .Q8H CHRISTIANO Rx#: [id number] Potassium Chloride 40 Meq In 1040 Dextrose 5% in Water 500 ml @ 130 mls/hr IV ONCE ONE Rx#: [id number] Oral 800 Output: Void Amount 2300 2450 Other: Urine Appearance Clear Clear Urine Color Pale Pale Urine Odor Normal Normal Exam: General: Alert, Awake, No acute Distress Eyes/N/T: EOMI, Head/Neck: neck supple, CV: reg at this time, No murmurs, normal s1/s2 Pulm: Clear b/l, no wheezing/rhonchi/rales Abd: soft, nontender, +BS x4 Ext: no clubbing/cyanosis/edema Neuro: Alert, no focal deficits, moves all extremities, decreased sensations bilateral lower extremities chronic Skin: warm/dry OBJ DATA Labs CBC & Chem 7: 05/17/20 05:00 05/17/20 05:00 Labs: Abnormal Lab Results 05/17/20 05/16/20 05/16/20 05:00 05:00 05:00 RBC 6.37 H Hgb 17.9 H Hct 53.4 H POC Hct MPV 10.7 H PT 14.7 H VBG pH VBG pCO2 VBG pO2 VBG O2 Saturation VBG Base Excess Carboxyhemoglobin Total Hemoglobin POC Sodium Sodium POC Potassium Potassium 2.4 L* POC Chloride Chloride 95 L Anion Gap POC BUN BUN 30 H Creatinine 1.4 H POC Creatinine Glucose 149 H POC Glucose Hemoglobin A1c Uric Acid 11.3 H POC WB Ioniz Calcium Phosphorus 1.8 L Total Bilirubin Alkaline Phosphatase Triglycerides 603 H Urine Glucose (UA) Urine Occult Blood Ur Leukocyte Esterase Urine RBC Urine WBC Urine Bacteria 05/15/20 05/15/20 05/15/20 20:52 20:52 18:12 RBC Hgb Hct POC Hct MPV PT VBG pH 7.52 H VBG pCO2 31.3 L VBG pO2 205 H* VBG O2 Saturation 97.0 H VBG Base Excess 3.1 H Carboxyhemoglobin 2.2 H Total Hemoglobin 19.1 H POC Sodium Sodium POC Potassium Potassium POC Chloride Chloride Anion Gap POC BUN BUN Creatinine POC Creatinine Glucose POC Glucose Hemoglobin A1c 17.7 H Uric Acid POC WB Ioniz Calcium Phosphorus Total Bilirubin Alkaline Phosphatase Triglycerides Urine Glucose (UA) >=500 A Urine Occult Blood 0.03 A Ur Leukocyte Esterase 250 A Urine RBC 4 H Urine WBC 15 H Urine Bacteria Few A 05/15/20 05/15/20 18:12 18:12 RBC 6.62 H Hgb 19.1 H Hct 53.9 H POC Hct 59.0 H MPV PT VBG pH VBG pCO2 VBG pO2 VBG O2 Saturation VBG Base Excess Carboxyhemoglobin Total Hemoglobin POC Sodium 124 L Sodium 122 L POC Potassium 2.5 L* Potassium 2.8 L* POC Chloride 84 L Chloride 80 L Anion Gap 18.0 H POC BUN 40 H BUN 38 H Creatinine 1.5 H POC Creatinine 1.5 H Glucose 545 H* POC Glucose 540 H* Hemoglobin A1c Uric Acid POC WB Ioniz Calcium 1.05 L Phosphorus Total Bilirubin 1.7 H Alkaline Phosphatase 126 H Triglycerides Urine Glucose (UA) Urine Occult Blood Ur Leukocyte Esterase Urine RBC Urine WBC Urine Bacteria Meds: Medications Acetaminophen (Tylenol) 650 mg PO Q6HP PRN PRN Reason: PAIN/FEVER > 101 Albuterol/Ipratropium (Duoneb) 3 ml NEB Q4HP PRN PRN Reason: Shortness Of Breath Atorvastatin Calcium (Lipitor) 80 mg PO QHS [facility] Last Admin: 05/16/20 20:28 Dose: 80 mg Documented by: Bisoprolol Fumarate (Zebeta) 5 mg PO QAM [facility] Last Admin: 05/16/20 08:03 Dose: Not Given Documented by: Dextrose (Dextrose 50%) 0 ml IV UD PRN PRN Reason: Hypoglycemia Diagnostic Test (Pha) (Accu-Chek) 1 each FS Q4H [facility] Last Admin: 05/17/20 04:27 Dose: 1 each Documented by: Docusate Sodium (Colace) 100 mg PO BID [facility] Last Admin: 05/16/20 20:28 Dose: 100 mg Documented by: Enoxaparin Sodium (Lovenox) 80 mg SQ DAILY [facility] Last Admin: 05/16/20 09:31 Dose: 80 mg Documented by: Glucose (Insta-Glucose) 15 gm PO PRN PRN PRN Reason: Hypoglycemia Potassium Chloride 40 meq/ (Dextrose) 520 mls @ 130 mls/hr IV UD PRN PRN Reason: Potassium < 3 Last Infusion: 05/16/20 14:59 Dose: Infused Documented by: Magnesium Sulfate (Magnesium Sulfate) 2 gm in 50 mls @ 50 mls/hr IV UD PRN PRN Reason: Magnesium </= 1.6 Ceftriaxone Sodium 2 gm/ (Dextrose) 50 mls @ 100 mls/hr IV DAILY [facility]; Protocol Last Infusion: 05/16/20 11:30 Dose: Infused Documented by: Insulin Glargine (Lantus) 35 unit SQ BID [facility] Last Admin: 05/16/20 20:29 Dose: 35 unit Documented by: Insulin Human Lispro (Humalog) 0 unit SQ Q4 [facility]; Protocol Last Admin: 05/17/20 04:30 Dose: 9 units Documented by: Insulin Lispro Protam/Lispro Human ([facility] 75/25) [facility] Admin: 05/16/20 16:38 Dose: 15 unit Documented by: Metoclopramide HCl (Reglan) 10 mg IV Q6HP PRN PRN Reason: Nausea And Vomiting Metoprolol Tartrate (Lopressor) 5 mg IV Q2HP PRN PRN Reason: Tachyarrhythmias HR>110 Ondansetron HCl (Zofran) 4 mg IV Q4HP PRN PRN Reason: Nausea And Vomiting Alfuzosin 10 Mg (Tablet) 1 dose PO DAILY [facility] Last Admin: 05/16/20 08:30 Dose: Not Given Documented by: Polyethylene Glycol (Miralax) 17 gm PO DAILYP PRN PRN Reason: Constipation Potassium Chloride (Kdur) 40 meq PO UD PRN PRN Reason: Potssium is 3-3.5 Potassium Chloride (Kdur) 40 meq PO UD PRN PRN Reason: Potassium < 3 Senna (Senokot) 2 tab PO DAILYP PRN PRN Reason: Constipation Warfarin Sodium (Coumadin Per Pharmacy) 1 order PO DAILY@1400 [facility] Last Admin: 05/16/20 12:29 Dose: Not Given Documented by: ABG Interpretation ABG results: 05/15/20 18:12 ABG Methemoglobin 0.4 VBG pH 7.52 H VBG pCO2 31.3 L VBG pO2 205 H* VBG HCO3 24.9 VBG Total CO2 25.8 VBG O2 Saturation 97.0 H VBG Base Excess 3.1 H A/P Narrative A/P Narrative: A: *HHS (h/o DM poorly controlled): -A1c 17.7 *Hypokalemia/hyponatremia with pseudo component: improved *CRIS on CKD III: follows with dr orgul -improved *PAF: on warfarin/bb *Hemoconcentrated: *HTN/HLD: *Tobacco abuse: *Hypertriglyceridemia: not taking statin regularly * P: -cont home Insulin(increase), SSI -DM education -lipid panel -home statin (was not taking regularly) -cont BB, hold thiazide -pt/ot -Smoking cessation counseling -ppx: warfarin per pharm full code Time Spent With Patient Time: Total time spent is greater than 50% in coordination of care (as documented) at patient's floor/unit and/or counseling patient:
[2020-05-17 07:35] LABS: ALT/SGPT 20 U/l (0-40); AST/SGOT 18 U/l (0-37); Albumin 3.5 gm/dL (3.2-5.2); Albumin/Globulin Ratio 1.5 (1.0-2.3); Alkaline Phosphatase 99 U/L (39-117); Bilirubin,Total 0.7 mg/dL (0.0-1.0); Calcium 8.5 mg/dl (8.6-10.4); Chloride 102 mmol/L (96-108); Globulin 2.3 gm/dL (2.2-3.7); Glucose 223 mg/dL (70-105); Lactate Dehydrogenase 137 U/L (94-250)
[2020-05-17 07:37] LABS: Bilirubin,Direct < 0.2 mg/dL (0.0-0.3); Blood Urea Nitrogen 22 mg/dl (8-23); Carbon Dioxide 20 mmol/L (22-30); Glomerular Filtration Rate 70; Phosphorous 1.9 mg/dL (2.7-4.5); Triglycerides 502 mg/dl (<150); Uric Acid 7.6 mg/dL (2.5-8.0)
[2020-05-17 08:34] LABS: HDL Cholesterol 23 mg/dl (>40); Non-HDL Cholesterol 98 (LDL TARGET+30); Triglycerides 513 mg/dl (<150)
[2020-05-17] MEDS: cefTRIAXone 2 GM in DEXTROSE 5% IN WATER 50 ML IV SCH (09:00)
[2020-05-17] MEDS ORDERED: INSULIN GLARGINE, HUMAN 1 UNIT/0.01 ML SQ SCH ×2 (09:00→21:00)
[2020-05-17] MEDS ORDERED: PHOSPHORUS 250 MG TABLET PO SCH ×2 (09:00→15:00)
[2020-05-17] MEDS: INSULIN, 75/25 NPL/LISPRO 1 UNIT/0.01 ML UNIT SQ SCH ×2 (10:43→17:35)
[2020-05-17] MEDS: BISOPROLOL 5 MG TABLET PO SCH (10:46)
[2020-05-17] MEDS: DOCUSATE SODIUM 100 MG CAPSULE PO SCH ×2 (10:46→20:56)
[2020-05-17] MEDS: ENOXAPARIN 80 MG/0.8 ML SYRINGE SQ SCH (10:50)
[2020-05-17] MEDS ORDERED: SENNOSIDES 1 TABLET PO PRN (10:51)
[2020-05-17] MEDS ORDERED: ACETAMINOPHEN 325 MG TABLET PO PRN (10:51)
[2020-05-17] MEDS ORDERED: MAGNESIUM SULFATE 2 GM/50 ML BAG IV PRN (10:51)
[2020-05-17] MEDS ORDERED: POTASSIUM CHLORIDE 40 MEQ in DEXTROSE 5% IN WATER 500 ML IV PRN (10:51)
[2020-05-17] MEDS ORDERED: POLYETHYLENE GLYCOL 3350 17 GM PACKET PO PRN (10:51)
[2020-05-17] MEDS ORDERED: DEXTROSE 31 GM ORAL.SUSP PO PRN (10:51)
[2020-05-17] MEDS ORDERED: METOCLOPRAMIDE 10 MG/2 ML VIAL IV PRN (10:51)
[2020-05-17] MEDS ORDERED: POTASSIUM CHLORIDE 20 MEQ TABLET PO PRN ×2 (10:51)
[2020-05-17] MEDS ORDERED: ONDANSETRON 4 MG/2 ML VIAL IV PRN (10:51)
[2020-05-17] MEDS ORDERED: DEXTROSE 50% 50 ML VIAL IV PRN (10:51)
[2020-05-17] MEDS ORDERED: IPRATROPIUM/ALBUTEROL 3 ML AMPUL.NEB NEB PRN (10:51)
[2020-05-17] MEDS ORDERED: METOPROLOL TARTRATE 5 MG/5 ML VIAL IV PRN (10:51)
[2020-05-17] MEDS ORDERED: WARFARIN 3 MG TABLET PO ONE ×2 (14:00)
[2020-05-17] MEDS ORDERED: ATORVASTATIN 40 MG TABLET PO SCH (21:00)
[2020-05-17] MEDS ORDERED: MELATONIN 3 MG TABLET PO SCH (21:00)
[2020-05-17] MEDS ORDERED: diphenhydrAMINE 25 MG CAPSULE PO PRN (21:18)
[2020-05-18] MEDS: INSULIN LISPRO 1 UNIT/0.01 ML UNIT SQ SCH ×3 (04:18→11:54)
[2020-05-18 06:59] LABS: INR 1.2 (0.9-1.1); Prothrombin Time 16.1 sec (11.9-14.5)
[2020-05-18 07:13] LABS: Bilirubin,Direct < 0.2 mg/dL (0.0-0.3); Chloride 102 mmol/L (96-108)
[2020-05-18 07:14] LABS: ALT/SGPT 22 U/l (0-40); AST/SGOT 26 U/l (0-37); Albumin 3.2 gm/dL (3.2-5.2); Albumin/Globulin Ratio 1.1 (1.0-2.3); Alkaline Phosphatase 98 U/L (39-117); Bilirubin,Total 0.5 mg/dL (0.0-1.0); Blood Urea Nitrogen 21 mg/dl (8-23); Calcium 8.6 mg/dl (8.6-10.4); Carbon Dioxide 17 mmol/L (22-30); Globulin 2.9 gm/dL (2.2-3.7); Glomerular Filtration Rate 70; Glucose 254 mg/dL (70-105); Lactate Dehydrogenase 275 U/L (94-250); Phosphorous 3.1 mg/dL (2.7-4.5); Triglycerides 514 mg/dl (<150); Uric Acid 7.4 mg/dL (2.5-8.0)
[2020-05-18] MEDS ORDERED: GEMFIBROZIL 600 MG TABLET PO SCH (07:30)
[2020-05-18] MEDS: DOCUSATE SODIUM 100 MG CAPSULE PO SCH (08:02)
[2020-05-18] MEDS: INSULIN, 75/25 NPL/LISPRO 1 UNIT/0.01 ML UNIT SQ SCH (08:17)
[2020-05-18] MEDS ORDERED: BISOPROLOL 5 MG TABLET PO SCH (09:00)
[2020-05-18] MEDS ORDERED: INSULIN GLARGINE, HUMAN 1 UNIT/0.01 ML SQ SCH (09:00)
[2020-05-18] MEDS ORDERED: cefTRIAXone 2 GM in DEXTROSE 5% IN WATER 50 ML IV SCH (09:00)
[2020-05-18] MEDS ORDERED: ENOXAPARIN 80 MG/0.8 ML SYRINGE SQ SCH (09:00)
[2020-05-18] MEDS ORDERED: WARFARIN 7.5 MG TABLET PO ONE (14:00)
== END 2020-05-18 13:34 | disposition home or self-care (01) | DRG 638 ==
LOC: ED 17:44 → ICU 22:03 → MEDSUR 05-17 15:10
PROVIDERS: ADMIT Internal Medicine; ATTEND Internal Medicine

== ENCOUNTER 2025-09-01 14:53 | Inpatient (IN) ==
[2025-09-01 16:01] LABS: Basophils # (Auto) 0.02 K/mcL (0.00-0.30); Basophils % (Auto) 0.2 % (0.0-2.0); Eosinophils # (Auto) 0.13 K/mcL (0.00-0.70); Eosinophils % (Auto) 1.1 % (0.0-7.0); Hematocrit 54.1 % (40.1-51.0); Hemoglobin 18.4 g/dL (13.7-17.5); Lymphocytes # (Auto) 1.89 K/mcL (1.50-4.80); Lymphocytes % (Auto) 16.6 % (15.5-49.0); Mean Corpuscular HGB Conc 34.0 g/dL (31.0-36.0); Monocytes # (Auto) 1.08 K/mcL (0.10-0.90); Monocytes % (Auto) 9.5 % (1.0-12.0); Neutrophils % (Auto) 72.2 % (38.0-78.0); Platelet Count 349 K/mcL (140-440); RBC 6.25 M/mcL (4.63-6.08); WBC 11.4 K/mcL (4.5-11.0)
[2025-09-01 16:14] LABS: INR 1.1 (0.9-1.1); Prothrombin Time 15.4 sec (11.9-14.5)
[2025-09-01] MEDS: 0.9 % SODIUM CHLORIDE 500 ML IV ONE ×2 (16:17→16:29)
[2025-09-01 16:25] LABS: Thyroid Stimulating Hormone 1.49 uIU/mL (0.27-5.01)
[2025-09-01 16:27] LABS: ALT/SGPT 30 U/L (<40); AST/SGOT 25 U/L (<40); Albumin 3.9 gm/dL (3.2-5.2); Albumin/Globulin Ratio 1.3 (1.0-2.3); Alkaline Phosphatase 132 U/L (39-117); Anion Gap 18.0 (8.0-16.0); Bilirubin,Total 0.9 mg/dL (0.1-1.0); Blood Urea Nitrogen 71 mg/dL (8-23); Calcium 9.3 mg/dL (8.6-10.4); Carbon Dioxide 18 mmol/L (22-30); Chloride 88 mmol/L (96-108); Globulin 3.0 gm/dL (2.2-3.7); Glucose 488 mg/dL (70-105); Potassium 4.3 mmol/L (3.3-5.1); Sodium 124 mmol/L (133-145)
[2025-09-01] MEDS: PIPERACILLIN SODIUM/TAZOBACTAM 4.5 GM in DEXTROSE 5% IN WATER 50 ML IV ONE (17:58)
[2025-09-01] MEDS: 0.9 % SODIUM CHLORIDE 250 ML IV SCH (18:24)
[2025-09-01] MEDS: NOREPINEPHRINE 250 ML IV SCH (18:24)
[2025-09-01] MEDS: VANCOMYCIN 1,500 MG in 0.9 % SODIUM CHLORIDE 500 ML IV ONE ×2 (18:50)
[2025-09-01 18:56] LABS: Anion Gap 14.0 (8.0-16.0); Blood Urea Nitrogen 70 mg/dL (8-23); Calcium 8.6 mg/dL (8.6-10.4); Carbon Dioxide 20 mmol/L (22-30); Chloride 92 mmol/L (96-108); Glucose 443 mg/dL (70-105); Potassium 4.4 mmol/L (3.3-5.1); Sodium 126 mmol/L (133-145)
[2025-09-01] MEDS: INSULIN REGULAR, HUMAN 1 UNIT/0.01 ML UNIT IV ONE (19:16)
[2025-09-01] MEDS: 0.9 % SODIUM CHLORIDE 1,000 ML IV ONE (19:46)
[2025-09-01 20:11] LABS: Bacteria,Urine Rare /hpf ({null, 0}); Bilirubin,Urine NEGATIVE (Negative); Color,Urine YELLOW; Glucose,Urine (UA) >=1000 mg/dL (Negative); Ketones,Urine NEGATIVE (Negative); Leukocyte Esterase,Urine NEGATIVE /uL (Negative); PH,Urine 5.5 (5.0-9.0); Protein,Urine TRACE mg/dL (Negative); Specific Gravity,Urine 1.020 (1.000-1.035); Urobilinogen,Urine 0.2 mg/dL
[2025-09-01 21:03] LABS: Estimated Average Glucose(eAG) 375 mg/dL; Hemoglobin A1C 14.7 % Hgb (4.0-6.0)
[2025-09-01 21:06] LABS: C-Reactive Protein 0.09 mg/dL (0.03-0.80)
[2025-09-01] MEDS ORDERED: DEXTROSE 50% 50 ML VIAL IV PRN (22:49)
[2025-09-01] MEDS ORDERED: DEXTROSE 31 GM ORAL.SUSP PO PRN (22:49)
[2025-09-01] MEDS: INSULIN LISPRO 1 UNIT/0.01 ML UNIT SQ SCH (23:04)
[2025-09-01] MEDS: 0.9 % SODIUM CHLORIDE 10 ML SYRINGE IV SCH (23:05)
[2025-09-01] MEDS: 0.9 % SODIUM CHLORIDE 1,000 ML IV SCH (23:05)
[2025-09-01] MEDS: INSULIN GLARGINE, HUMAN 1 UNIT/0.01 ML SQ SCH (23:05)
[2025-09-01] MEDS: INSULIN LISPRO 1 UNIT/0.01 ML UNIT SQ ONE (23:44)
[2025-09-01] MEDS: INSULIN GLARGINE, HUMAN 1 UNIT/0.01 ML SQ ONE (23:44)
[2025-09-02] MEDS: PIPERACILLIN SODIUM/TAZOBACTAM 4.5 GM in DEXTROSE 5% IN WATER 100 ML IV SCH ×2 (00:01→09:34)
[2025-09-02] MEDS: INSULIN LISPRO 1 UNIT/0.01 ML UNIT SQ ONE (01:20)
[2025-09-02 05:50] LABS: Basophils # (Auto) 0.03 K/mcL (0.00-0.30); Basophils % (Auto) 0.2 % (0.0-2.0); Eosinophils # (Auto) 0.23 K/mcL (0.00-0.70); Eosinophils % (Auto) 1.5 % (0.0-7.0); Hematocrit 46.6 % (40.1-51.0); Hemoglobin 15.9 g/dL (13.7-17.5); Lymphocytes # (Auto) 3.90 K/mcL (1.50-4.80); Lymphocytes % (Auto) 26.1 % (15.5-49.0); Mean Corpuscular HGB Conc 34.1 g/dL (31.0-36.0); Monocytes # (Auto) 1.43 K/mcL (0.10-0.90); Monocytes % (Auto) 9.6 % (1.0-12.0); Neutrophils % (Auto) 62.3 % (38.0-78.0); Platelet Count 386 K/mcL (140-440); RBC 5.36 M/mcL (4.63-6.08); WBC 14.9 K/mcL (4.5-11.0)
[2025-09-02 06:16] LABS: ALT/SGPT 25 U/L (<40); AST/SGOT 24 U/L (<40); Albumin 3.4 gm/dL (3.2-5.2); Albumin/Globulin Ratio 1.4 (1.0-2.3); Alkaline Phosphatase 98 U/L (39-117); Anion Gap 15.0 (8.0-16.0); Bilirubin,Direct 0.4 mg/dL (<0.3); Bilirubin,Total 0.9 mg/dL (0.1-1.0); Blood Urea Nitrogen 58 mg/dL (8-23); Calcium 8.3 mg/dL (8.6-10.4); Carbon Dioxide 18 mmol/L (22-30); Chloride 104 mmol/L (96-108); Globulin 2.5 gm/dL (2.2-3.7); Glucose 84 mg/dL (70-105); Phosphorous 3.5 mg/dL (2.5-4.5); Potassium 3.2 mmol/L (3.3-5.1); Sodium 137 mmol/L (133-145); Triglycerides 178 mg/dL (<150); Uric Acid 7.1 mg/dL (2.5-8.0)
[2025-09-02] MEDS: INSULIN GLARGINE, HUMAN 1 UNIT/0.01 ML SQ SCH ×2 (10:00→20:33)
[2025-09-02] MEDS: 0.9 % SODIUM CHLORIDE 1,000 ML IV ONE ×2 (11:04→11:07)
[2025-09-02] MEDS ORDERED: LIDOCAINE 2% PF 5 ML VIAL ONE (12:50)
[2025-09-02] MEDS ORDERED: PROPOFOL 200 MG/20 ML VIAL IV ONE (12:54)
[2025-09-02] MEDS ORDERED: VASOPRESSIN 20 UNIT/ML VIAL ONE (13:26)
[2025-09-02] MEDS ORDERED: ePHEDrine 50 MG/5 ML SYRINGE (ANEST) IV ONE (13:40)
[2025-09-02] MEDS: BUPIVACAINE 0.5% 50 ML VIAL IJ ONE (13:50)
[2025-09-02] MEDS ORDERED: IPRATROPIUM/ALBUTEROL 3 ML AMPUL.NEB NEB PRN ×2 (13:53)
[2025-09-02] MEDS ORDERED: LACTATED RINGERS 250 ML IV PRN (13:53)
[2025-09-02] MEDS ORDERED: METHOCARBAMOL 1,000 MG/10 ML VIAL IV PRN (13:53)
[2025-09-02] MEDS ORDERED: ONDANSETRON 4 MG/2 ML VIAL IV PRN (13:53)
[2025-09-02] MEDS ORDERED: fentaNYL 100 MCG/2 ML VIAL IV PRN (13:53)
[2025-09-02] MEDS ORDERED: NALOXONE HCL 0.4 MG/ML VIAL IV PRN (13:53)
[2025-09-02] MEDS: 0.9 % SODIUM CHLORIDE 10 ML SYRINGE IV SCH ×2 (15:23)
[2025-09-02] MEDS: POTASSIUM CHLORIDE 20 MEQ TABLET PO ONE ×2 (15:42→16:25)
[2025-09-02] MEDS: LACTATED RINGERS 1,000 ML IV SCH (16:24)
[2025-09-03 08:13] LABS: Basophils # (Auto) 0.02 K/mcL (0.00-0.30); Basophils % (Auto) 0.2 % (0.0-2.0); Eosinophils # (Auto) 0.33 K/mcL (0.00-0.70); Eosinophils % (Auto) 3.2 % (0.0-7.0); Hematocrit 46.7 % (40.1-51.0); Hemoglobin 15.6 g/dL (13.7-17.5); Lymphocytes # (Auto) 1.68 K/mcL (1.50-4.80); Lymphocytes % (Auto) 16.1 % (15.5-49.0); Mean Corpuscular HGB Conc 33.4 g/dL (31.0-36.0); Monocytes # (Auto) 0.99 K/mcL (0.10-0.90); Monocytes % (Auto) 9.5 % (1.0-12.0); Neutrophils % (Auto) 70.8 % (38.0-78.0); Platelet Count 288 K/mcL (140-440); RBC 5.26 M/mcL (4.63-6.08); WBC 10.4 K/mcL (4.5-11.0)
[2025-09-03 09:07] LABS: ALT/SGPT 28 U/L (<40); AST/SGOT 25 U/L (<40); Albumin 3.3 gm/dL (3.2-5.2); Albumin/Globulin Ratio 1.3 (1.0-2.3); Alkaline Phosphatase 88 U/L (39-117); Anion Gap 11.0 (8.0-16.0); Bilirubin,Direct 0.5 mg/dL (<0.3); Bilirubin,Total 1.1 mg/dL (0.1-1.0); Blood Urea Nitrogen 36 mg/dL (8-23); Calcium 8.3 mg/dL (8.6-10.4); Carbon Dioxide 17 mmol/L (22-30); Chloride 107 mmol/L (96-108); Globulin 2.5 gm/dL (2.2-3.7); Glucose 133 mg/dL (70-105); Phosphorous 2.0 mg/dL (2.5-4.5); Potassium 4.1 mmol/L (3.3-5.1); Sodium 135 mmol/L (133-145); Triglycerides 133 mg/dL (<150); Uric Acid 3.5 mg/dL (2.5-8.0)
[2025-09-03] MEDS: HEPARIN 5,000 UNIT/ML VIAL SQ SCH (20:26)
[2025-09-04 05:41] LABS: Basophils # (Auto) 0.03 K/mcL (0.00-0.30); Basophils % (Auto) 0.4 % (0.0-2.0); Eosinophils # (Auto) 0.34 K/mcL (0.00-0.70); Eosinophils % (Auto) 4.3 % (0.0-7.0); Hematocrit 48.3 % (40.1-51.0); Hemoglobin 15.7 g/dL (13.7-17.5); Lymphocytes # (Auto) 2.11 K/mcL (1.50-4.80); Lymphocytes % (Auto) 26.4 % (15.5-49.0); Mean Corpuscular HGB Conc 32.5 g/dL (31.0-36.0); Monocytes # (Auto) 0.94 K/mcL (0.10-0.90); Monocytes % (Auto) 11.8 % (1.0-12.0); Neutrophils % (Auto) 56.7 % (38.0-78.0); Platelet Count 274 K/mcL (140-440); RBC 5.32 M/mcL (4.63-6.08); WBC 8.0 K/mcL (4.5-11.0)
[2025-09-04 06:01] LABS: ALT/SGPT 30 U/L (<40); AST/SGOT 24 U/L (<40); Albumin 3.2 gm/dL (3.2-5.2); Albumin/Globulin Ratio 1.1 (1.0-2.3); Alkaline Phosphatase 98 U/L (39-117); Anion Gap 10.0 (8.0-16.0); Bilirubin,Direct 0.5 mg/dL (<0.3); Bilirubin,Total 1.0 mg/dL (0.1-1.0); Blood Urea Nitrogen 27 mg/dL (8-23); Calcium 8.4 mg/dL (8.6-10.4); Carbon Dioxide 17 mmol/L (22-30); Chloride 108 mmol/L (96-108); Globulin 3.0 gm/dL (2.2-3.7); Glucose 238 mg/dL (70-105); Phosphorous 2.1 mg/dL (2.5-4.5); Potassium 4.2 mmol/L (3.3-5.1); Sodium 135 mmol/L (133-145); Triglycerides 130 mg/dL (<150); Uric Acid 2.8 mg/dL (2.5-8.0)
[2025-09-04] MEDS: INSULIN LISPRO 1 UNIT/0.01 ML UNIT SQ SCH ×2 (07:50→07:51)
[2025-09-04] MEDS: NEUTRA PHOS 1 PACKET PO SCH (09:24)
[2025-09-04] MEDS: SODIUM BICARBONATE 650 MG TABLET PO SCH (09:24)
[2025-09-05 06:19] LABS: ALT/SGPT 30 U/L (<40); AST/SGOT 25 U/L (<40); Albumin 3.5 gm/dL (3.2-5.2); Albumin/Globulin Ratio 1.2 (1.0-2.3); Alkaline Phosphatase 87 U/L (39-117); Anion Gap 11.0 (8.0-16.0); Bilirubin,Direct 0.4 mg/dL (<0.3); Bilirubin,Total 0.8 mg/dL (0.1-1.0); Blood Urea Nitrogen 22 mg/dL (8-23); Calcium 8.8 mg/dL (8.6-10.4); Carbon Dioxide 19 mmol/L (22-30); Chloride 107 mmol/L (96-108); Globulin 3.0 gm/dL (2.2-3.7); Glucose 149 mg/dL (70-105); Phosphorous 2.7 mg/dL (2.5-4.5); Potassium 4.1 mmol/L (3.3-5.1); Sodium 137 mmol/L (133-145); Triglycerides 115 mg/dL (<150); Uric Acid 2.6 mg/dL (2.5-8.0)
[2025-09-06 07:09] LABS: ALT/SGPT 29 U/L (<40); AST/SGOT 22 U/L (<40); Albumin 3.5 gm/dL (3.2-5.2); Albumin/Globulin Ratio 1.1 (1.0-2.3); Alkaline Phosphatase 88 U/L (39-117); Anion Gap 11.0 (8.0-16.0); Bilirubin,Direct 0.3 mg/dL (<0.3); Bilirubin,Total 0.7 mg/dL (0.1-1.0); Blood Urea Nitrogen 21 mg/dL (8-23); Calcium 9.0 mg/dL (8.6-10.4); Carbon Dioxide 21 mmol/L (22-30); Chloride 106 mmol/L (96-108); Globulin 3.2 gm/dL (2.2-3.7); Glucose 207 mg/dL (70-105); Phosphorous 3.2 mg/dL (2.5-4.5); Potassium 4.2 mmol/L (3.3-5.1); Sodium 138 mmol/L (133-145); Triglycerides 156 mg/dL (<150); Uric Acid 2.9 mg/dL (2.5-8.0)
[2025-09-06] MEDS: INSULIN GLARGINE, HUMAN 1 UNIT/0.01 ML SQ SCH (21:08)
[2025-09-07 07:09] LABS: ALT/SGPT 25 U/L (<40); AST/SGOT 22 U/L (<40); Albumin 3.2 gm/dL (3.2-5.2); Albumin/Globulin Ratio 1.0 (1.0-2.3); Alkaline Phosphatase 83 U/L (39-117); Anion Gap 11.0 (8.0-16.0); Bilirubin,Direct < 0.2 mg/dL (0-0.3); Bilirubin,Total 0.4 mg/dL (0.1-1.0); Blood Urea Nitrogen 25 mg/dL (8-23); Calcium 9.2 mg/dL (8.6-10.4); Carbon Dioxide 18 mmol/L (22-30); Chloride 102 mmol/L (96-108); Globulin 3.2 gm/dL (2.2-3.7); Glucose 318 mg/dL (70-105); Phosphorous 3.3 mg/dL (2.5-4.5); Potassium 4.7 mmol/L (3.3-5.1); Sodium 131 mmol/L (133-145); Triglycerides 235 mg/dL (<150); Uric Acid 2.8 mg/dL (2.5-8.0)
[2025-09-07] MEDS: BISOPROLOL 5 MG TABLET PO SCH (08:55)
[2025-09-07] MEDS: INSULIN GLARGINE, HUMAN 1 UNIT/0.01 ML SQ SCH (09:00)
[2025-09-07] MEDS: SODIUM BICARBONATE 650 MG TABLET PO SCH (09:51)
[2025-09-07 12:02] LABS: INR 0.9 (0.9-1.1); Prothrombin Time 12.9 sec (11.9-14.5)
[2025-09-07] MEDS: WARFARIN 3 MG TABLET PO ONE (14:21)
[2025-09-07] MEDS: ATORVASTATIN 40 MG TABLET PO SCH (21:52)
[2025-09-08 07:45] LABS: INR 0.9 (0.9-1.1); Prothrombin Time 13.3 sec (11.9-14.5)
[2025-09-08 07:54] LABS: ALT/SGPT 28 U/L (<40); AST/SGOT 18 U/L (<40); Albumin 3.5 gm/dL (3.2-5.2); Albumin/Globulin Ratio 1.0 (1.0-2.3); Alkaline Phosphatase 85 U/L (39-117); Anion Gap 11.0 (8.0-16.0); Bilirubin,Direct 0.2 mg/dL (<0.3); Bilirubin,Total 0.5 mg/dL (0.1-1.0); Blood Urea Nitrogen 23 mg/dL (8-23); Calcium 9.5 mg/dL (8.6-10.4); Carbon Dioxide 21 mmol/L (22-30); Chloride 105 mmol/L (96-108); Globulin 3.4 gm/dL (2.2-3.7); Glucose 208 mg/dL (70-105); Phosphorous 2.8 mg/dL (2.5-4.5); Potassium 4.4 mmol/L (3.3-5.1); Sodium 137 mmol/L (133-145); Triglycerides 222 mg/dL (<150); Uric Acid 3.0 mg/dL (2.5-8.0)
[2025-09-08 07:55] VITALS: O2SAT 100
[2025-09-08] MEDS: WARFARIN 3 MG TABLET PO ONE (14:21)
[2025-09-08 15:51] VITALS: TEMP 97.2
== END 2025-09-08 14:29 | disposition home or self-care (01) ==
LOC: ED 14:53 → ICU 22:48 → MEDSUR 09-04 15:37
PROVIDERS: ADMIT Internal Medicine; ATTEND Internal Medicine